=== PATIENT | female | born 1995 | race African-American/Black ===

== ENCOUNTER 2022-05-03 17:24 | Emergency (ER) | payer OTHER ==
--- OUTSIDE RECORDS SUMMARY | 2022-05-03 17:31 | XMS REPORT | Continuity of Care Document ---
:1995 Author Organization [facility] Address [address] [place] [address] [address]. [address] [place] [address] Care Team Providers Name Role Phone DIPESH SOTO Attending Clinician Unavailable ZAHIRA LYLE Attending Clinician Unavailable KARLA ROSALES Attending Clinician Unavailable JESSA VIEIRA Attending Clinician Unavailable Jessa Vieira MD Attending Clinician Herrera Boles MD Attending Clinician Alise Sloan MD Attending Clinician Connie WHCNPKarla Attending Clinician [phone] Ultrasound, Ang[facility] Attending Clinician Unavailable Ramonita Thomson MD Attending Clinician Brad Norton Attending Clinician BRAD MARADIAGA Attending Clinician Unavailable Lab, Ang-Rmchp Attending Clinician Unavailable Tico Thomson DO Attending Clinician 1, [facility] Us Room Attending Clinician Unavailable Larissa Garcia MD, Annetta Attending Clinician [phone] Lab, [facility] Attending Clinician Unavailable Tea KILLIAN, Tamiko Hyman Attending Clinician Doctor Unassigned, [place] Attending Clinician Unavailable Herrera Boles MD Admitting Clinician Payers Payer Name Policy Type Policy Number Effective Date Expiration Date [facility] [id number] 2019 MEDICAID 00:00:00 Problems Condition Condition Condition Status Onset Resolution Last Treating Co mments Source Name Details Category Date Date Treatment Clinician Date 33 weeks 33 weeks Disease Active Unive rs gestation gestation 7-30 ity of of of 00:00: [place] 00 [facility] Elevated Elevated Disease Active Unive rs blood blood 7-29 ity of pressure pressure 00:00: [place] reading reading 00 Medical without without Branch diagnosis diagnosis of of hypertensi hypertensi on on Severe Severe Disease Active Univers pre-eclamp pre-eclamp 7-29 it y of guido in guido in 00:00: [place] third third 00 Medical trimester trimester Bran ch Nausea and Nausea and Disease Active U nivers vomiting vomiting 2-02 ity of during during 00:00: [place] 00 [facility] Abnormal Abnormal Disease Active Overview: Un grace maternal maternal 106 Formattin ity of glucose glucose 00:00: g of this [place] tolerance, tolerance, 00 note Me dical antepartum antepartum might be Branch different from the original. Failed early 1 hrgtt, passed early 3 hr gtt Multiparit Multiparit Disease Active U nivers y y 1-05 ity of 00:00: [place] [facility] Supervisio Supervisio Disease Active U nivers n of n of 1-05 ity of high-risk high-risk 00:[place] [facility] History of History of Disease Active U nivers gestationa gestationa 1-05 it y of l diabetes l diabetes 00:00: [place] 00 [place] History of History of Disease Active U nivers asthma asthma 1-05 ity of 00:00: [place] 00 [facility] Branch Other Other Disease Active Univers general general 3-09 ity of counseling counseling 00:00[place] and advice and advice 00 Me dical for for Branch contracept contracept karla karla management management Obesity in Obesity in Disease Active U nivers 3-09 ity of 00:00: [place] 00 Medical Branch Nexplanon Nexplanon Disease Active Uni vers removal removal 3- ity of 00:00: [place] 00 Medical Branch Obesity Obesity Disease Active Univers (BMI (BMI 3- ity of 30-39.9) 30-39.9) 00:00: [place] 00 Medical Branch Gestationa Gestationa Disease Active 2017-0 U nivers l diabetes l diabetes 09-20 it y of mellitus, mellitus, 00:[place] antepartum antepartum 00 Me dical Branch Susceptibl Susceptibl Disease Active U nivers e to e to 09-20 ity of varicella varicella 00:00[place] (non-immun (non-immun 00 Me dical e), e), Branch currently currently No known No known Disease Unive rs active active ity of problems problems [facility] Allergies, Adverse Reactions, Alerts Allergy Allergy Status Severity Reaction(s) Onset Inactive Treating Comm ents Source Name Type Date Date Clinician Banana Propensi Active Itching Patients Unive rs ty to 09-18 states ity of adverse 00:00: gives her [place] reaction 00 an itchy Medica l s throat Branch Seafood/ Propensi Active Swelling Patient Uni vers Fish ty to 09-18 states ity of adverse 00:00: throat [place] reaction 00 swells Medical s and Branch excessive sweating. BANANA DRUG Active ITCHING Univers INGREDI 09-18 ity of 00:00: [place] 00 Medical Branch SEAFOOD/ Food Active Swelling Univer s FISH 09-18 ity of 00:00: [place] 00 Medical Branch Social History Social Habit Start Date Stop Date Quantity Comments Source ASSERTION 2020-09-08 University of 00:00:00 [facility] History of Cigarette Smoker Universi ty of tobacco use [facility] Exposure to Not sure [facility] SARS-CoV-2 [facility] (event) Branch Alcohol intake 2021-04-17 2021-04-17 Current University of 00:00:00 00:00:00 non-drinker of [facility] alcohol (finding) Branch Tobacco use and 2021-04-17 2021-04-17 Never used Universit y of exposure 00:00:00 00:00:00 [facility] Tobacco Comment 2016-11-22 2016-11-22 smokes 5 x per Unive rsity of 00:00:00 00:00:00 day [facility] Sex Ass[birth year] At [birth year] Universit y of 00:00:00 00:00:00 [facility] Smoking Status Start Date Stop Date Source Current some day smoker 2021-04-17 00:00:00 Univ ersity of [facility] Current every day smoker 2016-11-23 00:00:00 Uni versity [facility] Medications Ordered Filled Start Stop Current Ordering Indication Dosage Frequency Signature Comments Components Source Medication Medication Date Date Medication? Clinician (SIG) Name Name hydroCHLORO Yes [id number] 50mg Take 1 Univers thiazide 50 8-04 tablet by ity of mg tablet 00:00: mouth [place] 00 daily. Medical Branch hydroCHLORO Yes [id number] 50mg Take 1 Univers thiazide 50 8-04 tablet by ity of mg tablet 00:00: mouth [place] 00 daily. Medical Branch NIFEdipine 2020- No 30mg 30 mg, Univ ers ER tablet 04-19 Oral, ONCE ity of 30 mg 22:45: 22:01 NOW, 1 [place] 00 :00 dose, [facility] 04/19/21 at Branch 1745, Routine labetaloL 2020- No 20mg 20 mg, Unive rs (NORMODYNE) 04-19 Slow IV ity of injection 19:45: 18:46 Push, [place] 20 mg 00 :00 ONCE, 1 Medical dose, [facility] 04/19/21 at 1445, Routine Yes [id number] 1{tbl} Take 1 U nivers vitamin 8-03 tablet by ity of w/FA tablet 00:00: mouth [place] 00 daily. Medical Branch docusate Yes [id number] 240mg Take 1 Un grace calcium 240 8-03 capsule by it y of mg capsule 00:00: mouth [place] 00 daily as Medical needed for Branch Constipati on. ferrous Yes [id number] 325mg Take 1 Uni vers sulfate 325 8-03 tablet by ity of mg (65 mg 00:00: mouth 2 [place] iron) 00 (two) Medical tablet times Branch daily. ibuprofen Yes [id number] 600mg Take 1 U nivers 600 mg 8-03 tablet by ity of tablet 00:00: mouth [place] 00 every 6 Medical (six) Branch hours as needed (Pain). Take with food or milk. NIFEdipine Yes [id number] 60mg Take 1 U nivers ER 60 mg 8-03 tablet by ity of tablet 00:00: mouth 2 [place] 00 (two) Medical times Branch daily. Yes [id number] 1{tbl} Take 1 U nivers vitamin 8-03 tablet by ity of w/FA tablet 00:00: mouth [place] 00 daily. Medical Branch docusate Yes [id number] 240mg Take 1 Un grace calcium 240 8-03 capsule by it y of mg capsule 00:00: mouth once [place] 00 daily as Medical needed for Branch Constipati on. ferrous Yes [id number] 325mg Take 1 Uni vers sulfate 325 8-03 tablet by ity of mg (65 mg 00:00: mouth 2 [place] iron) 00 (two) Medical tablet times Branch daily. ibuprofen Yes [id number] 600mg Take 1 U nivers 600 mg 8-03 tablet by ity of tablet 00:00: mouth [place] 00 every 6 Medical (six) Branch hours as needed (Pain). Take with food or milk. NIFEdipine Yes [id number] 60mg Take 1 U nivers ER 60 mg 8-03 tablet by ity of tablet 00:00: mouth 2 [place] 00 (two) Medical times Branch daily. labetaloL 2020- No 40mg 40 mg, Unive rs (NORMODYNE) 04-18 Slow IV ity of injection 23:30: 22:49 Push, [place] 40 mg 00 :00 ONCE, 1 Medical dose, [facility] 04/18/21 at 1830, Routine labetaloL 2020- No 20mg 20 mg, Unive rs (NORMODYNE) 04-18 Slow IV ity of injection 23:15: 22:11 Push, [place] 20 mg 00 :00 ONCE, 1 Medical dose, [facility] 04/18/21 at 1815, Routine labetaloL 2020- No 80mg 80 mg, Unive rs (NORMODYNE) 04-18 Slow IV ity of injection 23:09: 23:11 Push, [place] 80 mg 00 :00 ONCE, 1 Medical dose, [facility] 04/18/21 at 1815, Routine hydroCHLORO Yes 50mg 50 mg, Univ ers thiazide 04-18 Oral, ity of (ESIDRIX) 23:00: DAILY, [place] tablet 50 00 First dose Medi melly mg on [facility] 04/18/21 at 1800, Until Discontinu ed, Routine NIFEdipine Yes 30mg 30 mg, Unive rs (ADALAT) 04-18 Oral, BID, ity o f capsule 30 01:00: First dose [place] mg 00 on [facility] 04/17/21 at Branch 2000, Until Discontinu ed, Routine labetaloL 202- No 40mg 40 mg, Unive rs (NORMODYNE) 04-18 Slow IV ity of injection 00:45: 23:42 Push, [place] 40 mg 00 :00 ONCE, 1 Medical dose, [facility] 04/17/21 at 1945, Routine labetaloL 2020- No 20mg 20 mg, Unive rs (NORMODYNE) 04-17 Slow IV ity of injection 23:45: 22:35 Push, [place] 20 mg 00 :00 ONCE, 1 Medical dose, [facility] 04/17/21 at 1845, Routine magnesium 2020- No 2g/h 2 g/hr (50 U nivers sulfate in 04-17 mL/hr), at it y of 0.9 %NaCl 20:30: 06:35 50 mL/hr, [place] 10 gram/250 00 :53 IV Medical mL (40 Infusion, Branch mg/mL) IV CONTINUOUS SOLUTION , Starting [place] 04/17/21 at 1530, Until [facility] 04/18/21 at 0135, ROYCE labetaloL 202- No 20mg 20 mg, Unive rs (NORMODYNE) 04-17 Slow IV ity of injection 14:02: 14:07 Push, [place] 20 mg 00 :00 ONCE, 1 Medical dose, [facility] 04/17/21 at 0915, Routine NIFEdipine 2020- No 30mg 30 mg, Univ ers ER tablet 04-17 Oral, ity of 30 mg 14:00: 22:39 DAILY, [place] 00 :15 First dose Medical on [facility] 04/17/21 at 0900, Until Discontinu ed, Routine labetaloL 202- No 20mg 20 mg, Unive rs (NORMODYNE) 04-17 Slow IV ity of injection 13:45: 12:43 Push, [place] 20 mg 00 :00 ONCE, 1 Medical dose, [place] [facility] 04/17/21 at 0845, ROYCE rho(D) Yes 300ug 300 mcg, Univer s immune 04-17 Intramuscu ity of globulin 12:50: lar, ONCE, [place] (RHOGAM) 04 For 1 Medical syringe 300 dose, Branch mcg Conditiona l, Routine ondansetron Yes 4mg 4 mg, Slow Univers (ZOFRAN 04-17 IV Push, ity of (PF)) 12:50: Q8HPRN, [place] injection 4 00 Starting Medi melly mg [place] 04/17/21 Branch at 0750, Until Discontinu ed, Routine, Nausea and Vomiting (N/V) simethicone Yes 160mg 160 mg, Un grace (GAS RELIEF 04-17 Oral, ity of (SIMETHICON 12:50: PC+HSPRN, [place] E)) 00 Starting Medical chewable 04/17/21 Branc h tablet 160 at 0750, mg Until Discontinu ed, Routine, Gas magnesium Yes 30mL 30 mL, [place] [facility] s hydroxide 04-17 Oral, ity of (MILK OF 12:50: QDAILYPRN, [place] MAGNESIA) 00 Starting Medica l 400 mg/5 mL [place] 04/17/21 Br anch suspension at 0750, 30 mL Until Discontinu ed, Routine, Constipati on ibuprofen Yes 600mg 600 mg, Univ ers (IBU) 04-17 Oral, ity of tablet 600 12:49: Q6HPRN, [place] mg 59 Starting Medical 04/17/21 Branch at 0749, Until Discontinu ed, Routine, Pain (scale 4-6) acetaminoph Yes 650mg 650 mg, Un grace en 04-17 Oral, ity of (TYLENOL) 12:49: Q6HPRN, [place] tablet 650 59 Starting Medic al mg [place] 04/17/21 Branch at 0749, Until Discontinu ed, Routine, Pain (scale 1-3) diphenhydrA Yes 25mg 25 mg, Univ ers MINE 04-17 Oral, ity of (BENADRYL) 12:49: Q6HPRN, [place] tablet 25 59 Starting Medica l mg 04/17/21 Branch at 0749, Until Discontinu ed, Routine, Sleep, Itching diphenhydrA Yes 25mg 25 mg, IV U nivers MINE-0.9 % 04-17 Piggyback, ity of sod.chlr 12:49: Administer [place] (BENADRYL) 59 over 30 Medica l 25 mg/50 mL Minutes, Bran ch piggyback Q6HPRN, 25 mg Starting 04/17/21 at 0749, Until Discontinu ed, Routine, Itching docusate Yes 240mg 240 mg, Unive rs calcium 04-17 Oral, ity of (SURFAK) 12:49: QDAILYPRN, [place] capsule 240 59 Starting Medi melly mg 04/17/21 Branch at 0749, Until Discontinu ed, Routine, Constipati on benzocaine- Yes Topical, Un grace menthol 04-17 PRN, ity of (DERMOPLAST 12:49: Starting [place] ) 20-0.5 % 59 04/17/21 Med ical topical at 0749, Branch spray Until Discontinu ed, Routine, Perineum discomfort LR 1000 mL 2020- No 999mL/h 999 mL/hr, Univers + oxytocin 04-17 IV ity of 20 units IV 07:00: 07:31 Infusion, [place] Solution 00 :00 ONCE, [place] Medica l 04/17/21 at Branch 0200, For 1 dose
In fuse 999 mL /hr & amp;nbsp;o evy 30 minutes and then decrease rate to 125 mL/hr for the remainder.
hydralAZINE 2020- No 10mg 10 mg, Uni vers (APRESOLINE 04-17 Slow IV ity of ) injection 04:00: 03:22 [place], [place] 10 mg 00 :00 ONCE, 1 Medical dose, Sat Branch 04/16/21 at 2300, STAT
In dication: Hypertensi ve Emergency in niCARdipine 2020- No 2.5mg/h 2.5-15 Univers (CARDENE 04-17 08-02 mg/hr ity of I.V.) 40 mg 03:29: 07:23 (12.5-75 [place] in NaCL 200 18 :50 mL/hr), IV Me dical mL (RTU) Infusion, Branch infusion TITRATE, SBP Goal < 180 mmHg, DBP Goal < 110 mmHg, Titrate to <160/110, Starting 04/16/21 at 2229
In itiate infusion at 2.5 mg/hr.&nbs p; Ti trate by 2.5 mg/hr every 5 minutes to 15 minutes as needed to achieve and maintain goal blood pressure. Maximum dose = 15 mg/hr. If goal not maintained at maximum allowed dose, contact prescriber .
niCARdipine 2020- No 2.5mg/h 2.5-15 Univers (CARDENE 04-17 mg/hr ity of I.V.) 40 mg 03:29: 03:18 (12.5-75 [place] in NaCL 200 18 :17 mL/hr), IV Me dical mL (RTU) Infusion, Branch infusion TITRATE, SBP Goal < 180 mmHg, Starting 04/16/21 at 2229
In itiate infusion at 2.5 mg/hr.&nbs p; Ti trate by 2.5 mg/hr every 5 minutes to 15 minutes as needed to achieve and maintain goal blood pressure. Maximum dose = 15 mg/hr. If goal not maintained at maximum allowed dose, contact prescriber .
magnesium No 2g/h 2 g/hr (50 U nivers sulfate in 04-17 mL/hr), at it y of 0.9 %NaCl 00:00: 11:59 50 mL/hr, [place] 10 gram/250 00 :00 IV Medical mL (40 Infusion, Branch mg/mL) IV CONTINUOUS SOLUTION , Starting 04/16/21 at 1900, Until 04/17/21 at 0659, ROYCE labetaloL 2020- No 80mg 80 mg, Unive rs (NORMODYNE) 04-16 Slow IV ity of injection 23:15: 22:14 Push, [place] 80 mg 00 :00 ONCE, 1 Medical dose, Sat Branch 04/16/21 at 1815, Routine labetaloL 2020- No 40mg 40 mg, Unive rs (NORMODYNE) 04-16 Slow IV ity of injection 23:00: 21:55 Push, [place] 40 mg 00 :00 ONCE, 1 Medical dose, Sat Branch 04/16/21 at 1800, Routine diphenhydrA 2020- No 25mg 25 mg, Uni vers MINE 04-16 Slow IV ity of (BENADRYL) 22:58: 23:06 Push, [place] injection 00 :00 ONCE, 1 Medical 25 mg dose, Sat Branch 04/16/21 at 1800, Routine labetaloL 2020- No 20mg 20 mg, Unive rs (NORMODYNE) 04-16 Slow IV ity of injection 22:30: 21:18 Push, [place] 20 mg 00 :00 ONCE, 1 Medical dose, Sat Branch 04/16/21 at 1730, ROYCE LR 1000 mL 2020- No 2mU/min at 6-120 Univers + oxytocin 04-16 08-01 mL/hr, IV ity of 20 units IV 21:45: 07:27 Infusion, [place] Solution 33 :46 TITRATE, Medical Starting Branch 04/16/21 at 1645, Until 04/17/21 at 0227, ROYCE lactated 2020- No 500mL at 999 Unive rs ringers IV 04-16 mL/hr, 500 it y of infusion 19:45: 19:53 mL, IV [place] 500 mL 00 :00 Infusion, Medical ONCE, 1 Branch dose, 04/16/21 at 1445, Routine sodium 2020- No 30mL 30 mL, Univers citrate-cit 04-16 Oral, ity of jesus acid 18:34: 19:52 PRE-PROCED [place] (BICITRA) 18 :00 URE ONCE, Medic al 500-334 1 dose, Branch mg/5 mL Starting solution 30 Sat mL 04/16/21 at 1334, Until Discontinu ed, Routine, Surgery/Pr ocedure hydralAZINE 2020- No 10mg 10 mg, Uni vers (APRESOLINE 04-16 Slow IV ity of ) injection 18:00: 17:01 [place], [place] 10 mg 00 :00 ONCE, 1 Medical dose, Sat [place] 04/16/21 at 1300, STAT
In dication: Hypertensi ve Emergency in labetaloL 2020- No 20mg 20 mg, Unive rs (NORMODYNE) 04-16 Slow IV ity of injection 13:53: 13:55 Push, [place] 20 mg 00 :00 ONCE, 1 Medical dose, Sat [place] 04/16/21 at 0900, Routine labetaloL 2020- No 20mg 20 mg, Unive rs (NORMODYNE) 04-16 Slow IV ity of injection 04:34: 04:37 Push, [place] 20 mg 00 :00 ONCE, 1 Medical dose, Fri [place] 04/15/21 at 2345, ROYCE NIFEdipine 2020- No 30mg 30 mg, Univ ers ER tablet 04-16 Oral, ity of 30 mg 04:34: 04:52 ONCE, 1 [place] 00 :00 dose, Fri Medical 04/15/21 at Branch 2345, ROYCE magnesium 2020- No 2g/h 2 g/hr (50 U nivers sulfate in 04-15 mL/hr), at it y of 0.9 %NaCl 19:45: 07:44 50 mL/hr, [place] 10 gram/250 00 :00 IV Medical mL (40 Infusion, Branch mg/mL) IV CONTINUOUS SOLUTION , Starting 04/15/21 at 1445, Until 04/16/21 at 0244, ROYCE butalbital- 2020- No 2{tbl} 2 tablet, Univers acetaminoph 04-15 Oral, ity of en-caff 05:20: 06:09 ONCE, 1 [place] (ESGIC) 00 :00 dose, Fri Medical 50-325-40 04/15/21 at Bran ch mg tablet 2 0030, tablet Routine D5W 0.45% 2020- No 1000mL at 75 Univ ers NaCl 04-15 08-01 mL/hr, ity of (1/2NS) IV 04:00: 12:50 1,000 mL, [place] infusion 00 :04 IV Medical 1,000 mL Infusion, Branch CONTINUOUS , Starting [place] 04/14/21 at 2300, Until 04/17/21 at 0750, ROYCE magnesium 2020- No 2g/h 2 g/hr (50 U nivers sulfate in 04-15-30 mL/hr), at it y of 0.9 %NaCl 04:00: 15:59 50 mL/hr, [place] 10 gram/250 00 :00 IV Medical mL (40 Infusion, Branch mg/mL) IV CONTINUOUS SOLUTION , Starting [place] 04/14/21 at 2300, Until Sun04/15/21 at 1059, ROYCE labetaloL 2020- No 40mg 40 mg, Unive rs (NORMODYNE) 04-14 Slow IV ity of injection 23:35: 23:40 Push, [place] 40 mg 00 :00 ONCE, 1 Medical dose, [facility] [place] 04/14/21 at 1845, ROYCE NIFEdipine 2020- No 30mg 30 mg, Univ ers ER tablet 04-14 Oral, ity of 30 mg 23:30: 23:11 ONCE, 1 [place] 00 :00 dose, [facility] Medical 04/14/21 at Branch 1830, Routine betamethaso 2020- No 12mg 12 mg, Uni vers ne acet,sod 04-14 Intramuscu i ty of phos 22:45: 23:00 lar, Q24H, [place] (CELESTONE 00 :00 2 doses, Medic al SOLUSPAN) 6 First dose Br anch mg/mL on [place] injection 04/14/21 at 12 mg 1745, Last dose on Sun04/15/21 at 1745, Routine D5W 0.45% 2020- No 1000mL at 75 Univ ers NaCl 04-14 08-02 mL/hr, ity of (1/2NS) IV 21:45: 07:23 1,000 mL, [place] infusion 00 :50 IV Medical 1,000 mL Infusion, Branch CONTINUOUS , Starting [facility] 04/14/21 at 1645, Until 04/18/21 at 0223, ROYCE magnesium 2020- No 2g/h 2 g/hr (50 U nivers sulfate in 04-1430 mL/hr), at it y of 0.9 %NaCl 21:45: 03:51 50 mL/hr, [place] 10 gram/250 00 :54 IV Medical mL (40 Infusion, Branch mg/mL) IV CONTINUOUS SOLUTION , Starting [place] 04/14/21 at 1645, Until [place] 04/14/21 at 2251, ROYCE LORazepam Yes 2mg 2 mg, Univers (ATIVAN) 04-14 Intravenou ity o f injection 2 21:34: s, PRN - [place] mg 27 SEE Medical INSTRUCTIO Branch NS, 2 doses, Starting [place] 04/14/21 at 1634, Until Discontinu ed, Routine, Seizures Yes [id number] 1{tbl} Take 1 U nivers multivitami 3-02 tablet by ity of n ( 00:00: mouth [place] VITAMIN) 00 daily. Medical tablet Branch Yes [id number] 1{tbl} Take 1 U nivers multivitami 3-02 tablet by ity of n ( 00:00: mouth [place] VITAMIN) 00 daily. Medical tablet Branch Yes [id number] 1{tbl} Take 1 U nivers multivitami 3-02 tablet by ity of n ( 00:00: mouth [place] VITAMIN) 00 daily. Medical tablet Branch Yes [id number] 1{tbl} Take 1 U nivers multivitami 3-02 tablet by ity of n ( 00:00: mouth [place] VITAMIN) 00 daily. Medical tablet Branch Yes [id number] 1{tbl} Take 1 U nivers multivitami 3-02 tablet by ity of n ( 00:00: mouth [place] VITAMIN) 00 daily. Medical tablet Branch Yes [id number] 1{tbl} Take 1 U nivers multivitami 3-02 tablet by ity of n ( 00:00: mouth [place] VITAMIN) 00 daily. Medical tablet Branch Yes [id number] 1{tbl} Take 1 U nivers multivitami 3-02 tablet by ity of n ( 00:00: mouth [place] VITAMIN) 00 daily. Medical tablet Branch Yes [id number] 1{tbl} Take 1 U nivers multivitami 3-02 tablet by ity of n ( 00:00: mouth [place] VITAMIN) 00 daily. Medical tablet Branch Yes [id number] 1{tbl} Take 1 U nivers multivitami 3-02 tablet by ity of n ( 00:00: mouth [place] VITAMIN) 00 daily. Medical tablet Branch Yes [id number] 1{tbl} Take 1 U nivers multivitami 3-02 tablet by ity of n ( 00:00: mouth [place] VITAMIN) 00 daily. Medical tablet Branch Yes [id number] 1{tbl} Take 1 U nivers multivitami 3-02 tablet by ity of n ( 00:00: mouth [place] VITAMIN) 00 daily. Medical tablet Branch Yes [id number] 1{tbl} Take 1 U nivers multivitami 3-02 tablet by ity of n ( 00:00: mouth [place] VITAMIN) 00 daily. Medical tablet Branch Yes [id number] 1{tbl} Take 1 U nivers multivitami 3-02 tablet by ity of n ( 00:00: mouth [place] VITAMIN) 00 daily. Medical tablet Branch Yes [id number] 1{tbl} Take 1 U nivers multivitami 3-02 tablet by ity of n ( 00:00: mouth [place] VITAMIN) 00 daily. Medical tablet Branch Yes [id number] 1{tbl} Take 1 U nivers multivitami 3-02 tablet by ity of n ( 00:00: mouth [place] VITAMIN) 00 daily. Medical tablet Branch Yes [id number] 1{tbl} Take 1 U nivers multivitami 3-02 tablet by ity of n ( 00:00: mouth [place] VITAMIN) 00 daily. Medical tablet Branch Yes [id number] 1{tbl} Take 1 U nivers multivitami 3-02 tablet by ity of n ( 00:00: mouth [place] VITAMIN) 00 daily. Medical tablet Branch Yes [id number] 1{tbl} Take 1 U nivers multivitami 3-02 tablet by ity of n ( 00:00: mouth [place] VITAMIN) 00 daily. Medical tablet Branch Yes [id number] 1{tbl} Take 1 U nivers multivitami 3-02 tablet by ity of n ( 00:00: mouth [place] VITAMIN) 00 daily. Medical tablet Branch Yes [id number] 1{tbl} Take 1 U nivers multivitami 3-02 tablet by ity of n ( 00:00: mouth [place] VITAMIN) 00 daily. Medical tablet Branch Yes [id number] 1{tbl} Take 1 U nivers multivitami 3-02 tablet by ity of n ( 00:00: mouth [place] VITAMIN) 00 daily. Medical tablet Branch Yes [id number] 1{tbl} Take 1 U nivers multivitami 3-02 tablet by ity of n ( 00:00: mouth [place] VITAMIN) 00 daily. Medical tablet Branch 2020- No [id number] 1{tbl} Take 1 Univers multivitami 3-02 08-03 tablet by it y of n ( 00:00: 00:00 [place] VITAMIN) 00 :00 daily. Medical tablet Branch proMETHazin Yes [id number] 25mg Take 1 Univers e 25 mg 2-02 tablet by ity of tablet 00:00: mouth [place] 00 every 6 Medical (six) Branch hours as needed for Nausea and Vomiting (N/V). proMETHazin Yes [id number] 25mg Take 1 Univers e 25 mg 2-02 tablet by ity of tablet 00:00: mouth [place] 00 every 6 Medical (six) Branch hours as needed for Nausea and Vomiting (N/V). proMETHazin Yes [id number] 25mg Take 1 Univers e 25 mg 2-02 tablet by ity of tablet 00:00: mouth [place] 00 every 6 Medical (six) Branch hours as needed for Nausea and Vomiting (N/V). proMETHazin Yes [id number] 25mg Take 1 Univers e 25 mg 2-02 tablet by ity of tablet 00:00: mouth [place] 00 every 6 Medical (six) Branch hours as needed for Nausea and Vomiting (N/V). proMETHazin Yes [id number] 25mg Take 1 Univers e 25 mg 2-02 tablet by ity of tablet 00:00: mouth [place] 00 every 6 Medical (six) Branch hours as needed for Nausea and Vomiting (N/V). proMETHazin 2020-0 Yes [id number] 25mg Take 1 Univers e 25 mg 2-02 tablet by ity of tablet 00:00: mouth [place] 00 every 6 Medical (six) Branch hours as needed for Nausea and Vomiting (N/V). proMETHazin 2020-0 Yes [id number] 25mg Take 1 Univers e 25 mg 2-02 tablet by ity of tablet 00:00: mouth [place] 00 every 6 Medical (six) Branch hours as needed for Nausea and Vomiting (N/V). proMETHazin 2020-0 Yes [id number] 25mg Take 1 Univers e 25 mg 2-02 tablet by ity of tablet 00:00: mouth [place] 00 every 6 Medical (six) Branch hours as needed for Nausea and Vomiting (N/V). proMETHazin 2020-0 Yes [id number] 25mg Take 1 Univers e 25 mg 2-02 tablet by ity of tablet 00:00: mouth [place] 00 every 6 Medical (six) Branch hours as needed for Nausea and Vomiting (N/V). proMETHazin 2020-0 Yes [id number] 25mg Take 1 Univers e 25 mg 2-02 tablet by ity of tablet 00:00: mouth [place] 00 every 6 Medical (six) Branch hours as needed for Nausea and Vomiting (N/V). proMETHazin 2020-0 Yes [id number] 25mg Take 1 Univers e 25 mg 2-02 tablet by ity of tablet 00:00: mouth [place] 00 every 6 Medical (six) Branch hours as needed for Nausea and Vomiting (N/V). proMETHazin 2020-0 Yes [id number] 25mg Take 1 Univers e 25 mg 2-02 tablet by ity of tablet 00:00: mouth [place] 00 every 6 Medical (six) Branch hours as needed for Nausea and Vomiting (N/V). proMETHazin 2020-0 Yes [id number] 25mg Take 1 Univers e 25 mg 2-02 tablet by ity of tablet 00:00: mouth [place] 00 every 6 Medical (six) Branch hours as needed for Nausea and Vomiting (N/V). proMETHazin 2020-0 Yes [id number] 25mg Take 1 Univers e 25 mg 2-02 tablet by ity of tablet 00:00: mouth [place] 00 every 6 Medical (six) Branch hours as needed for Nausea and Vomiting (N/V). proMETHazin 2020-0 Yes [id number] 25mg Take 1 Univers e 25 mg 2-02 tablet by ity of tablet 00:00: mouth [place] 00 every 6 Medical (six) Branch hours as needed for Nausea and Vomiting (N/V). proMETHazin 2020-0 Yes [id number] 25mg Take 1 [facility] e 25 mg 2-02 tablet by ity of tablet 00:00: mouth [place] 00 every 6 Medical (six) Branch hours as needed for Nausea and Vomiting (N/V). proMETHazin 0 Yes [id number] 25mg Take 1 Univers e 25 mg 2-02 tablet by ity of tablet 00:00: mouth [place] 00 every 6 Medical (six) Branch hours as needed for Nausea and Vomiting (N/V). proMETHazin 0 Yes [id number] 25mg Take 1 Univers e 25 mg 2-02 tablet by ity of tablet 00:00: mouth [place] 00 every 6 Medical (six) Branch hours as needed for Nausea and Vomiting (N/V). proMETHazin 0 Yes [id number] 25mg Take 1 Univers e 25 mg 2-02 tablet by ity of tablet 00:00: mouth [place] 00 every 6 Medical (six) Branch hours as needed for Nausea and Vomiting (N/V). proMETHazin 0 Yes [id number] 25mg Take 1 Univers e 25 mg 2-02 tablet by ity of tablet 00:00: mouth [place] 00 every 6 Medical (six) Branch hours as needed for Nausea and Vomiting (N/V). proMETHazin 0 Yes [id number] 25mg Take 1 Univers e 25 mg 2-02 tablet by ity of tablet 00:00: mouth [place] 00 every 6 Medical (six) Branch hours as needed for Nausea and Vomiting (N/V). proMETHazin 2020-0 Yes [id number] 25mg Take 1 Univers e 25 mg 2-02 tablet by ity of tablet 00:00: mouth [place] 00 every 6 Medical (six) Branch hours as needed for Nausea and Vomiting (N/V). proMETHazin 2020-0 Yes [id number] 25mg Take 1 Univers e 25 mg 2-02 tablet by ity of tablet 00:00: mouth [place] 00 every 6 Medical (six) Branch hours as needed for Nausea and Vomiting (N/V). proMETHazin 2020- No [id number] 25mg Take 1 Univers e 25 mg 10-19- tablet by ity of tablet 00:00: 00:00 mouth [place] 00 :00 every 6 Medical (six) Branch hours as needed for Nausea and Vomiting (N/V). Yes [id number] 1{tbl} Take 1 U nivers multivitami 1-05 tablet by ity of n ( 00:00: mouth [place] VITAMIN) 00 daily. Medical tablet Branch Yes [id number] 1{tbl} Take 1 U nivers multivitami 1-05 tablet by ity of n ( 00:00: mouth [place] VITAMIN) 00 daily. Medical tablet Branch Yes [id number] 1{tbl} Take 1 U nivers multivitami 1-05 tablet by ity of n ( 00:00: mouth [place] VITAMIN) 00 daily. Medical tablet Branch Yes [id number] 1{tbl} Take 1 U nivers multivitami 1-05 tablet by ity of n ( 00:00: mouth [place] VITAMIN) 00 daily. Medical tablet Branch Yes [id number] 1{tbl} Take 1 U nivers multivitami 1-05 tablet by ity of n ( 00:00: mouth [place] VITAMIN) 00 daily. Medical tablet Branch Yes [id number] 1{tbl} Take 1 U nivers multivitami 1-05 tablet by ity of n ( 00:00: mouth [place] VITAMIN) 00 daily. Medical tablet Branch Yes [id number] 1{tbl} Take 1 U nivers multivitami 1-05 tablet by ity of n ( 00:00: mouth [place] VITAMIN) 00 daily. Medical tablet Branch Yes [id number] 1{tbl} Take 1 U nivers multivitami 1-05 tablet by ity of n ( 00:00: mouth [place] VITAMIN) 00 daily. Medical tablet Branch Yes [id number] 1{tbl} Take 1 U nivers multivitami 1-05 tablet by ity of n ( 00:00: mouth [place] VITAMIN) 00 daily. Medical tablet Branch Yes [id number] 1{tbl} Take 1 U nivers multivitami 1-05 tablet by ity of n ( 00:00: mouth [place] VITAMIN) 00 daily. Medical tablet Branch Yes [id number] 1{tbl} Take 1 U nivers multivitami 1-05 tablet by ity of n ( 00:00: mouth [place] VITAMIN) 00 daily. Medical tablet Branch Yes [id number] 1{tbl} Take 1 U nivers multivitami 1-05 tablet by ity of n ( 00:00: mouth [place] VITAMIN) 00 daily. Medical tablet Branch Yes [id number] 1{tbl} Take 1 U nivers multivitami 1-05 tablet by ity of n ( 00:00: mouth [place] VITAMIN) 00 daily. Medical tablet Branch Yes [id number] 1{tbl} Take 1 U nivers multivitami 1-05 tablet by ity of n ( 00:00: mouth [place] VITAMIN) 00 daily. Medical tablet Branch Yes [id number] 1{tbl} Take 1 U nivers multivitami 1-05 tablet by ity of n ( 00:00: mouth [place] VITAMIN) 00 daily. Medical tablet Branch Yes [id number] 1{tbl} Take 1 U nivers multivitami 1-05 tablet by ity of n ( 00:00: mouth [place] VITAMIN) 00 daily. Medical tablet Branch Yes [id number] 1{tbl} Take 1 U nivers multivitami 1-05 tablet by ity of n ( 00:00: mouth [place] VITAMIN) 00 daily. Medical tablet Branch Yes [id number] 1{tbl} Take 1 U nivers multivitami 1-05 tablet by ity of n ( 00:00: mouth [place] VITAMIN) 00 daily. Medical tablet Branch Yes [id number] 1{tbl} Take 1 U nivers multivitami 1-05 tablet by ity of n ( 00:00: mouth [place] VITAMIN) 00 daily. Medical tablet Branch Yes [id number] 1{tbl} Take 1 U nivers multivitami 1-05 tablet by ity of n ( 00:00: mouth [place] VITAMIN) 00 daily. Medical tablet Branch Yes [id number] 1{tbl} Take 1 U nivers multivitami 1-05 tablet by ity of n ( 00:00: mouth [place] VITAMIN) 00 daily. Medical tablet Branch Yes [id number] 1{tbl} Take 1 U nivers multivitami 1-05 tablet by ity of n ( 00:00: mouth [place] VITAMIN) 00 daily. Medical tablet Branch Yes [id number] 1{tbl} Take 1 U nivers multivitami 1-05 tablet by ity of n ( 00:00: mouth [place] VITAMIN) 00 daily. Medical tablet Branch Yes [id number] 1{tbl} Take 1 U nivers multivitami 1-05 tablet by ity of n ( 00:00: mouth [place] VITAMIN) 00 daily. Medical tablet Branch Yes [id number] 1{tbl} Take 1 U nivers multivitami 1-05 tablet by ity of n ( 00:00: mouth [place] VITAMIN) 00 daily. Medical tablet Branch Yes [id number] 1{tbl} Take 1 U nivers multivitami 1-05 tablet by ity of n ( 00:00: mouth [place] VITAMIN) 00 daily. Medical tablet Branch Yes [id number] 1{tbl} Take 1 U nivers multivitami 1-05 tablet by ity of n ( 00:00: mouth [place] VITAMIN) 00 daily. Medical tablet Branch Yes [id number] 1{tbl} Take 1 U nivers multivitami 1-05 tablet by ity of n ( 00:00: mouth [place] VITAMIN) 00 daily. Medical tablet Branch 2020- No [id number] 1{tbl} Take 1 [facility] multivitami 1-05 08-03 tablet by it y of n ( 00:00: [place] 00 :00 daily. Medical tablet Branch norgestimat Yes [id number] 1{tbl} Take 1 Univers e-ethinyl 3-19 tablet by ity o f estradiol 00:00: mouth [place] (ORTHO 00 daily. Medical TRI-CYCLEN, Branch 28,) 0.18/0.215/ 0.25 mg-35 mcg (28) tablet norgestimat 2020-0 Yes [id number] 1{tbl} Take 1 Univers e-ethinyl 3-19 tablet by ity o f estradiol 00:00: mouth [place] (ORTHO 00 daily. [place] [address],) 0.18/0.215/ 0.25 mg-35 mcg (28) tablet norgestimat 2020-0 Yes [id number] 1{tbl} Take 1 Univers e-ethinyl 3-19 tablet by ity o f estradiol 00:00: mouth [place] (ORTHO 00 daily. [place] [address],) 0.18/0.215/ 0.25 mg-35 mcg (28) tablet norgestimat 2020-0 Yes [id number] 1{tbl} Take 1 Univers e-ethinyl 3-19 tablet by ity o f estradiol 00:00: mouth [place] (ORTHO 00 daily. [place] [address],) 0.18/0.215/ 0.25 mg-35 mcg (28) tablet norgestimat 2020-0 Yes [id number] 1{tbl} Take 1 Univers e-ethinyl 3-19 tablet by ity o f estradiol 00:00: mouth [place] (ORTHO 00 daily. [place] [address],) 0.18/0.215/ 0.25 mg-35 mcg (28) tablet norgestimat 2020-0 Yes [id number] 1{tbl} Take 1 Univers e-ethinyl 3-19 tablet by ity o f estradiol 00:00: mouth [place] (ORTHO 00 daily. [place] [address],) 0.18/0.215/ 0.25 mg-35 mcg (28) tablet norgestimat 2020-0 Yes [id number] 1{tbl} Take 1 Univers e-ethinyl 3-19 tablet by ity o f estradiol 00:00: mouth [place] (ORTHO 00 daily. [place] [address],) 0.18/0.215/ 0.25 mg-35 mcg (28) tablet norgestimat 2020-0 Yes [id number] 1{tbl} Take 1 Univers e-ethinyl 3-19 tablet by ity o f estradiol 00:00: mouth [place] (ORTHO 00 daily. [place] [address],) 0.18/0.215/ 0.25 mg-35 mcg (28) tablet norgestimat 2020-0 Yes [id number] 1{tbl} Take 1 Univers e-ethinyl 3-19 tablet by ity o f estradiol 00:00: mouth [place] (ORTHO 00 daily. [place] [address],) 0.18/0.215/ 0.25 mg-35 mcg (28) tablet norgestimat 2020-0 Yes [id number] 1{tbl} Take 1 Univers e-ethinyl 3-19 tablet by ity o f estradiol 00:00: mouth [place] (ORTHO 00 daily. [place] [address],) 0.18/0.215/ 0.25 mg-35 mcg (28) tablet norgestimat 2020-0 Yes [id number] 1{tbl} Take 1 Univers e-ethinyl 3-19 tablet by ity o f estradiol 00:00: mouth [place] (ORTHO 00 daily. [place] [address],) 0.18/0.215/ 0.25 mg-35 mcg (28) tablet norgestimat 2020-0 Yes [id number] 1{tbl} Take 1 Univers e-ethinyl 3-19 tablet by ity o f estradiol 00:00: mouth [place] (ORTHO 00 daily. [place] [address],) 0.18/0.215/ 0.25 mg-35 mcg (28) tablet norgestimat 2020-0 Yes [id number] 1{tbl} Take 1 Univers e-ethinyl 3-19 tablet by ity o f estradiol 00:00: mouth [place] (ORTHO 00 daily. [place] [address],) 0.18/0.215/ 0.25 mg-35 mcg (28) tablet norgestimat 2020-0 Yes [id number] 1{tbl} Take 1 Univers e-ethinyl 3-19 tablet by ity o f estradiol 00:00: mouth [place] (ORTHO 00 daily. [place] [address],) 0.18/0.215/ 0.25 mg-35 mcg (28) tablet norgestimat 2020-0 Yes [id number] 1{tbl} Take 1 Univers e-ethinyl 3-19 tablet by ity o f estradiol 00:00: mouth [place] (ORTHO 00 daily. [place] [address],) 0.18/0.215/ 0.25 mg-35 mcg (28) tablet norgestimat 2020-0 Yes [id number] 1{tbl} Take 1 Univers e-ethinyl 3-19 tablet by ity o f estradiol 00:00: mouth [place] (ORTHO 00 daily. [place] [address],) 0.18/0.215/ 0.25 mg-35 mcg (28) tablet norgestimat 2020-0 Yes [id number] 1{tbl} Take 1 Univers e-ethinyl 3-19 tablet by ity o f estradiol 00:00: mouth [place] (ORTHO 00 daily. [place] [address],) 0.18/0.215/ 0.25 mg-35 mcg (28) tablet norgestimat 2020-0 Yes [id number] 1{tbl} Take 1 Univers e-ethinyl 3-19 tablet by ity o f estradiol 00:00: mouth [place] (ORTHO 00 daily. [place] [address],) 0.18/0.215/ 0.25 mg-35 mcg (28) tablet norgestimat 2020-0 Yes [id number] 1{tbl} Take 1 Univers e-ethinyl 3-19 tablet by ity o f estradiol 00:00: mouth [place] (ORTHO 00 daily. [place] [address],) 0.18/0.215/ 0.25 mg-35 mcg (28) tablet norgestimat 2020-0 Yes [id number] 1{tbl} Take 1 Univers e-ethinyl 3-19 tablet by ity o f estradiol 00:00: mouth [place] (ORTHO 00 daily. [place] [address],) 0.18/0.215/ 0.25 mg-35 mcg (28) tablet norgestimat 2020-0 Yes [id number] 1{tbl} Take 1 Univers e-ethinyl 3-19 tablet by ity o f estradiol 00:00: mouth [place] (ORTHO 00 daily. [place] [address],) 0.18/0.215/ 0.25 mg-35 mcg (28) tablet norgestimat 2020-0 Yes [id number] 1{tbl} Take 1 Univers e-ethinyl 3-19 tablet by ity o f estradiol 00:00: mouth [place] (ORTHO 00 daily. [place] [address],) 0.18/0.215/ 0.25 mg-35 mcg (28) tablet norgestimat 2020-0 Yes [id number] 1{tbl} Take 1 Univers e-ethinyl 3-19 tablet by ity o f estradiol 00:00: mouth [place] (ORTHO 00 daily. [place] [address],) 0.18/0.215/ 0.25 mg-35 mcg (28) tablet norgestimat 2020-0 Yes [id number] 1{tbl} Take 1 Univers e-ethinyl 3-19 tablet by ity o f estradiol 00:00: mouth [place] (ORTHO 00 daily. [place] [address],) 0.18/0.215/ 0.25 mg-35 mcg (28) tablet norgestimat 2020-0 Yes [id number] 1{tbl} Take 1 Univers e-ethinyl 3-19 tablet by ity o f estradiol 00:00: mouth [place] (ORTHO 00 daily. [place] [address],) 0.18/0.215/ 0.25 mg-35 mcg (28) tablet norgestimat 2020-0 Yes [id number] 1{tbl} Take 1 Univers e-ethinyl 3-19 tablet by ity o f estradiol 00:00: mouth [place] (ORTHO 00 daily. [place] [address],) 0.18/0.215/ 0.25 mg-35 mcg (28) tablet norgestimat 2020-0 Yes [id number] 1{tbl} Take 1 Univers e-ethinyl 3-19 tablet by ity o f estradiol 00:00: mouth [place] (ORTHO 00 daily. [place] [address],) 0.18/0.215/ 0.25 mg-35 mcg (28) tablet norgestimat 2020-0 2021- No [id number] 1{tbl} Take 1 Univers e-ethinyl 3-19 03-30 tablet by ity of estradiol 00:00: 00:00 mouth [place] (ORTHO 00 :00 daily. Medical TRI-CYCLEN, Branch 28,) 0.18/0.215/ 0.25 mg-35 mcg (28) tablet azithromyci 2019- 2020- No [id number] 1000mg Take 2 Univers n 500 mg 2-24 02-25 tablets by ity of tablet 00:00: 05:59 [place] 00 :[place] now for 1 Medical dose. Branch azithromyci 2019- 2020- No [id number] 1000mg Take 2 Univers n 500 mg 2-24 02-25 tablets by ity of tablet 00:00: 05:59 [place] :[place] now for 1 [facility] dose. Branch No known [facility] Immunizations Ordered Filled Immunization Date Status Comments Sour e Immunization Name Name [facility] 2021-03-09 Completed University of 00:00:00 [facility] TDAP 2021-03-09 Completed University of 00:00:00 [facility] TDAP 2021-03-09 Completed University of 00:00:00 [facility] TDAP 2021-03-09 Completed University of 00:00:00 [facility] TDAP 2021-03-09 Completed University of 00:00:00 [facility] TDAP 2021-03-09 Completed University of 00:00:00 [facility] TDAP 2021-03-09 Completed University of 00:00:00 [facility] Tdap 2016-09-18 Completed University of 00:00:00 [facility] Tdap 2016-09-18 Completed University of 00:00:00 [facility] Tdap 2016-09-18 Completed University of 00:00:00 [facility] Tdap 2016-09-18 Completed University of 00:00:00 [facility] Tdap 2016-09-18 Completed University of 00:00:00 [facility] Tdap 2016-09-18 Completed University of 00:00:00 [facility] Tdap 2016-09-18 Completed University of 00:00:00 [facility] Tdap 2016-09-18 Completed University of 00:00:00 [facility] Tdap 2016-09-18 Completed University of 00:00:00 [facility] Tdap 2016-09-18 Completed University of 00:00:00 [facility] Tdap 2016-09-18 Completed University of 00:00:00 [place] [facility] Tdap 2016-09-18 Completed University of 00:00:00 [place] [facility] Tdap 2016-09-18 Completed University of 00:00:00 [place] [facility] TDAP 2016-09-18 Completed University of 00:00:00 [place] [facility] TDAP 2016-09-18 Completed University of 00:00:00 [place] [facility] TDAP 2016-09-18 Completed University of 00:00:00 [place] [facility] TDAP 2016-09-18 Completed University of 00:00:00 [place] [facility] TDAP 2016-09-18 Completed University of 00:00:00 [facility] TDAP 2016-09-18 Completed University of 00:00:00 [facility] TDAP 2016-09-18 Completed University of 00:00:00 [facility] TDAP 2016-09-18 Completed University of 00:00:00 [facility] TDAP 2016-09-18 Completed University of 00:00:00 [facility] TDAP 2016-09-18 Completed University of 00:00:00 [facility] TDAP 2016-09-18 Completed University of 00:00:00 [place] [facility] TDAP 2016-09-18 Completed University of 00:00:00 [facility] TDAP 2016-09-18 Completed University of 00:00:00 [facility] TDAP 2016-09-18 Completed University of 00:00:00 [facility] TDAP 2016-09-18 Completed University of 00:00:00 [facility] TDAP 2016-09-18 Completed University of 00:00:00 [place] [facility] TDAP 2016-09-18 Completed University of 00:00:00 [place] [facility] TDAP 2016-09-18 Completed University of 00:00:00 [place] [facility] TDAP 2016-09-18 Completed University of 00:00:00 [place] [facility] TDAP 2016-09-18 Completed University of 00:00:00 [place] [facility] TDAP 2016-09-18 Completed University of 00:00:00 [place] [facility] TDAP 2016-09-18 Completed University of 00:00:00 [place] [facility] TDAP 2016-09-18 Completed University of 00:00:00 [place] [facility] TDAP 2016-09-18 Completed University of 00:00:00 [place] [facility] TDAP 2016-09-18 Completed University of 00:00:00 [place] [facility] TDAP 2016-09-18 Completed University of 00:00:00 [place] [facility] TDAP 2016-09-18 Completed University of 00:00:00 [place] [facility] TDAP 2016-09-18 Completed University of 00:00:00 [place] [facility] TDAP 2016-09-18 Completed University of 00:00:00 [place] [facility] TDAP 2016-09-18 Completed University of 00:00:00 [place] [facility] TDAP 2016-09-18 Completed University of 00:00:00 [facility] Vital Signs Vital Name Observation Time Observation Value Comments Source Systolic blood 2021-04-19 21:30:00 152 mm[Hg] Univer sity of pressure [facility] Diastolic blood 2021-04-19 21:30:00 98 mm[Hg] Unive rsity of pressure [facility] Heart rate 2021-04-19 21:14:00 89 /min Universi ty [facility] Body temperature 2021-04-19 21:14:00 36.78 Rebecca [facility] Oxygen saturation in 2021-04-19 21:14:00 100 /min [facility] Arterial blood by [facility] Pulse oximetry Branch Respiratory rate 2021-04-19 14:40:00 19 /min [facility] Body height 2021-04-15 03:34:00 160 cm [facility] Body weight 2021-04-15 03:34:00 88.451 kg [facility] BMI 2021-04-15 03:34:00 34.55 kg/m2 [facility] Systolic blood 2021-04-14 18:31:00 176 mm[Hg] Univer sity of pressure [facility] Diastolic blood 2021-04-14 18:31:00 100 mm[Hg] Unive rsity of pressure [facility] Heart rate 2021-04-14 18:25:00 72 /min Universi ty [facility] Body temperature 2021-04-14 18:25:00 36.39 [facility] 2021-04-14 18:25:00 16 /[facility] Body height 2021-04-14 18:25:00 160 cm [facility] [place] [facility] Body weight 2021-04-14 18:25:00 88.508 kg Universi ty [facility] [place] [facility] BMI 2021-04-14 18:25:00 34.56 kg/m2 [facility] [place] [facility] Systolic blood 2021-03-09 21:14:00 131 mm[Hg] Univer sity of pressure [place] [facility] Diastolic blood 2021-03-09 21:14:00 80 mm[Hg] Unive rsity of pressure [place] [facility] Heart rate 2021-03-09 21:14:00 89 /min Universi ty [facility] [place] [facility] Body temperature 2021-03-09 21:14:00 37.11 Rebecca [facility] ers[facility] [place] [facility] Respiratory rate 2021-03-09 21:14:00 16 /min Univ ersity of [place] [facility] Body height 2021-03-09 21:14:00 160 cm [facility]i ty [facility] [place] [facility] Body weight 2021-03-09 21:14:00 84.029 kg [facility]i [facility] [place] [facility] BMI 2021-03-09 21:14:00 32.82 kg/m2 [facility] [place] [facility] Systolic blood 2021-02-09 19:04:00 110 mm[Hg] Univer sity of pressure [place] [facility] Diastolic blood 2021-02-09 19:04:00 71 mm[Hg] Unive rsity of pressure [place] [facility] Heart rate 2021-02-09 19:04:00 107 /min [facility]i [facility] [place] [facility] Body temperature 2021-02-09 19:04:00 36.83 Rebecca [facility] ers[facility] [place] [facility] Respiratory rate 2021-02-09 19:04:00 16 /min Univ ersity of [place] [facility] Body height 2021-02-09 19:04:00 160 cm [facility]i ty [facility] [place] [facility] Body weight 2021-02-09 19:04:00 84.414 kg [facility]i ty [facility] [place] [facility] BMI 2021-02-09 19:04:00 32.97 kg/m2 [facility] ty of [place] [facility] Systolic blood 2021-01-11 19:12:00 113 mm[Hg] Univer sity of pressure [place] [facility] Diastolic blood 2021-01-11 19:12:00 72 mm[Hg] Unive rsity of pressure [place] [facility] Heart rate 2021-01-11 19:12:00 90 /min [facility]i [facility] [place] [facility] Body temperature 2021-01-11 19:12:00 36.78 Rebecca [facility] ers[facility] [place] [facility] Respiratory rate 2021-01-11 19:12:00 16 /min Univ ersity [facility] [place] [facility] Body height 2021-01-11 19:12:00 160 cm [facility]i [facility] [place] [facility] Body weight 2021-01-11 19:12:00 82.781 kg [facility] [place] [facility] BMI 2021-01-11 19:12:00 32.33 kg/m2 [facility] [place] [facility] Systolic blood 2020-12-14 16:03:00 119 mm[Hg] Univer sity of pressure [place] [facility] Diastolic blood 2020-12-14 16:03:00 78 mm[Hg] Unive rsity of pressure [place] [facility] Heart rate 2020-12-14 16:03:00 88 /min [facility] [place] [facility] Body temperature 2020-12-14 16:03:00 36.22 Rebecca [facility] ers[facility] [place] [facility] Respiratory rate 2020-12-14 16:03:00 16 /min Univ ersity [facility] [place] [facility] Body height 2020-12-14 16:03:00 160 cm [facility] [place] [facility] Body weight 2020-12-14 16:03:00 82.668 kg [facility] [place] [facility] BMI 2020-12-14 16:03:00 32.28 kg/m2 [facility] [place] [facility] Systolic blood 2020-11-16 15:15:00 126 mm[Hg] Univer sity of pressure [place] [facility] Diastolic blood 2020-11-16 15:15:00 81 mm[Hg] Unive rsity of pressure [place] [facility] Heart rate 2020-11-16 15:15:00 89 /min [facility] [place] [facility] Body temperature 2020-11-16 15:15:00 37.17 Rebecca [facility] ers[facility] [place] [facility] Respiratory rate 2020-11-16 15:15:00 16 /min Univ ersity [facility] [place] [facility] Body height 2020-11-16 15:15:00 160 cm [facility] [place] [facility] Body weight 2020-11-16 15:15:00 81.194 kg [facility] [place] [facility] BMI 2020-11-16 15:15:00 31.71 kg/m2 [facility] [place] [facility] Systolic blood 2020-10-19 15:00:00 121 mm[Hg] Univer sity of pressure [place] [facility] Diastolic blood 2020-10-19 15:00:00 80 mm[Hg] Unive rsity of pressure [place] [facility] Heart rate 2020-10-19 15:00:00 94 /min [facility] [place] [facility] Body temperature 2020-10-19 14:59:00 36.67 Rebecca [facility] [place] [facility] Respiratory rate 2020-10-19 14:59:00 16 /min Univ ersity [facility] [place] [facility] Body height 2020-10-19 14:59:00 161.5 cm [facility] [place] [facility] Body weight 2020-10-19 14:59:00 82.101 kg [facility] [place] [facility] BMI 2020-10-19 14:59:00 31.46 kg/m2 [facility] [place] [facility] Systolic blood 2020-09-21 19:30:00 113 mm[Hg] Univer sity of pressure [place] [facility] Diastolic blood 2020-09-21 19:30:00 79 mm[Hg] Unive rsity of pressure [facility] Heart rate 2020-09-21 19:30:00 104 /min [facility] [place] [facility] Body temperature 2020-09-21 19:30:00 36.89 Rebecca [facility] ers[facility] [place] [facility] Respiratory rate 2020-09-21 19:30:00 16 /min Univ ersity [facility] Body height 2020-09-21 19:30:00 160 cm [facility] [place] [facility] Body weight 2020-09-21 19:30:00 82.101 kg [facility] [place] [facility] BMI 2020-09-21 19:30:00 32.06 kg/m2 [facility] [place] [facility] Systolic blood 2019-12-04 19:25:00 129 mm[Hg] Univer sity of pressure [facility] Diastolic blood 2019-12-04 19:25:00 88 mm[Hg] Unive rsity of pressure [facility] Heart rate 2019-12-04 19:24:00 76 /min [facility] [place] [facility] Body temperature 2019-12-04 19:24:00 36.56 Rebecca [facility] 2019-12-04 19:24:00 16 /min [facility] Body height 2019-12-04 19:24:00 160 cm Universi ty of [facility] Body weight 2019-12-04 19:24:00 86.637 kg Universi ty of [facility] BMI 2019-12-04 19:24:00 33.83 kg/m2 Universi ty of [facility] Systolic blood 2019-11-06 20:39:00 119 mm[Hg] [facility] Diastolic blood 2019-11-06 20:39:00 83 [facility]Hg[facility] 20:39:00 96 /min Universi ty of [facility] Body temperature 2019-11-06 20:39:00 36.72 Rebecca [facility] Respiratory rate 2019-11-06 20:39:00 16 /min [facility] Body height 2019-11-06 20:39:00 160 cm Universi ty of [facility] Body weight 2019-11-06 20:39:00 85.333 kg [facility] BMI 2019-11-06 20:39:00 33.32 kg/m2 [facility] Procedures Procedure Date / Time Performing Clinician Source Performed HB ABO GROUPING 2021-04-19 05:06:00 Anthony Harry [facility] CBC WITH DIFF 2021-04-18 07:33:00 Amber Fonseca [facility] SGOT (ASPARTATE AMINO 2021-04-17 13:56:00 [facility] Medical Branch CREATININE 2021-04-17 13:56:00 Amber Fonseca [facility] ALANINE AMINO 2021-04-17 13:56:00 [facility] TRANSFERASE(SGPT Medical Branch LACTATE DEHYDROGENASE 2021-04-17 13:56:00 Amber Fonseca [facility] URIC ACID 2021-04-17 13:56:00 Amber Fonseca [facility] CBC WITH DIFF 2021-04-17 13:56:00 [facility] CORD GAS 2021-04-17 07:02:00 Raymundo [facility] URINALYSIS 2021-04-17 00:15:00 Vu, [facility] PROTEIN CREAT RATIO URINE 2021-04-17 00:15:00 [facility] (ASPARTATE AMINO 2021-04-17 00:14:00 Vu, [facility] TRANSFER) Medical Branch CREATININE 2021-04-17 00:14:00 Vu, [facility] ALANINE AMINO 2021-04-17 00:14:00 Vu, [facility] TRANSFERASE(SGPT Medical [place] LACTATE DEHYDROGENASE 2021-04-17 00:14:00 Vu, [facility] URIC ACID 2021-04-17 00:14:00 Vu, [facility] CBC WITH DIFF 2021-04-17 00:14:00 Vu, [facility] HB ABO GROUPING 2021-04-16 04:16:00 Lluvia Che [facility] RHO (D) IMMUNE GLOBULIN 2021-04-16 04:16:00 Amber Fonseca [facility] GROUP B STREPTOCOCCUS BY 2021-04-15 14:39:00 Aniya Duran [facility] PROTEIN CREAT RATIO URINE 2021-04-15 07:32:00 Fish, Migdalia Un [facility] GALV ONLY - [place] 2021-04-15 06:23:00 Lluvia Che [facility] IGG/IGM [facility] POCT GLUCOSE (AUTOMATED) 2021-04-15 06:11:00 Herrera Boles [facility] GROUP B STREPTOCOCCUS BY 2021-04-14 21:59:00 Jessa Vieira [facility] SGOT (ASPARTATE AMINO 2021-04-14 21:52:00 Vieira Jessa [facility] TRANSFER) Medical Branch CREATININE 2021-04-14 21:52:00 Vieira, Jessa Cam [facility] ALANINE AMINO 2021-04-14 21:52:00 Jessa Vieira [facility] TRANSFERASE(SGPT Medical Branch LACTATE DEHYDROGENASE 2021-04-14 21:52:00 Jessa Vieira Jeremias [facility] URIC ACID 2021-04-14 21:52:00 Jessa Vieira Jeremias [facility] CBC WITH DIFF 2021-04-14 21:52:00 Jessa Vieira Jeremias [facility] URINALYSIS 2021-04-14 21:52:00 Jessa Vieira [facility] HEPATITIS B SURFACE 2021-04-14 21:52:00 Dariel Jessaraymond Mcd[facility] ANTIGEN [facility] ADC OR AMANDO ONLY - RPR 2021-04-14 21:52:00 VieiraJessa Jeremias [facility] HIV 1/2 AG-AB WITH REFLEX 2021-04-14 21:52:00 VieiraJessa Jeremias [facility] COVID-19 (ID NOW RAPID 2021-04-14 21:52:00 Jessa Vieira Jeremias [facility] TESTING) Medical Branch LAB ONLY COVID 2021-04-14 21:52:00 Jessa Vieira Jeremias [facility] HB ABO GROUPING 2021-04-14 21:45:00 Jessa Vieira [facility] NOTICE OF PRIVACY 2021-04-14 20:32:12 Doctor Unassigned, [facility] PRACTICES [place] [facility] [place] CONSENT/REFUSAL FOR 2021-04-14 20:31:36 Doctor Unassnguyen, [facility] DIAGNOSIS AND TREATMENT [facility]INALYS[facility] 2021-04-14 18:27:00 Karla Rosales [facility] CBC WITH DIFF 2021-03-09 21:51:00 Karla Rosales [facility] HIV 1/2 AG-AB WITH REFLEX 2021-03-09 21:51:00 Karla Rosales [facility] GALV ONLY - [place] 2021-03-09 21:51:00 Karla Rosales [facility] IGG/IGM Medical Branch TDAP VACCINE, >11 YRS, IM 2021-03-09 21:29:50 Karla Rosales [facility] POCT URINALYSIS 2021-01-11 19:13:00 Karla Rosales [facility] POCT URINALYSIS 2020-12-14 16:06:00 Karla Rosales [facility] POCT URINALYSIS 2020-11-16 16:33:00 Karla Rosales [facility] GC & CHLAMYDIA AMPLIFIED 2020-09-21 21:36:00 Karla Rosales [facility] ASSAY [facility] GLUCOSE 1 HOUR POST 2020-09-21 20:34:00 Karla Rosales [facility] CBC WITH DIFF 2020-09-21 20:34:00 Karla Rosales [facility] RUBELLA SCREEN IGG 2020-09-21 20:34:00 Karla Rosales [facility] VZV ANTIBODY SCREEN 2020-09-21 20:34:00 Karla Rosales [facility] HEPATITIS B SURFACE 2020-09-21 20:34:00 Karla Rosales [facility] HB ABO GROUPING 2020-09-21 20:34:00 Karla Rosales [facility] HIV 1/2 AG-AB WITH REFLEX 2020-09-21 20:34:00 Karla Rosales [facility] GALV ONLY - [place] 2020-09-21 20:34:[address] [facility]IGM [facility] SARS-COV-2 IGG 2020-09-21 20:34:00 Karla Rosales [facility] POCT URINALYSIS W/O 2020-09-21 19:24:00 Karla Rosales Uni [facility] POCT TEST 2020-09-21 19:23:00 Karla Rosales [facility] CONSENT/REFUSAL FOR 2020-09-21 19:04:19 Doctor Unassigned, Unive [facility] DIAGNOSIS AND TREATMENT [place] [facility] [place] POCT TEST 2019-12-04 20:21:00 Karla Rosales [facility] DISCLOSURE AND CONSENT 2019-12-04 05:01:00 Doctor Unassigned, Un [facility] MEDICAL & SURGICAL [place] [facility] [place] PROCEDURES - HYSTEY PAP SMEAR-LIQUID BASED-CP 2019-11-06 22:27:00 Karla Rosales [facility] POCT TEST 2019-11-06 20:53:00 Karla Rosales [facility] ASSIGNMENT OF BENEFITS 2019-11-06 20:23:26 [facility] [place] [facility] [place] Encounters Start End Encounter Admission Attending Care Care Encounter Source Date/Time Date/Time Type Type Clinicians Facility Department ID 2021-07-18 Emergency [facility] [id number] Univers 11:50:35 [facility] 2021-07-06 2021-07-06 Outpatient Emilee SOTO [facility] [id number] Univers 09:00:00 09:00:00 DIPESH [id number] [facility] 2021-07-06 2021-07-06 Outpatient Emilee SOTO [facility] [id number] Univers 09:00:00 09:00:00 DIPESH [facility] 2021-06-24 2021-06-24 Outpatient Emilee SOTO [facility] [id number] Univers 11:00:00 11:00:00 DIPESH [id number] [facility] 2021-06-24 2021-06-24 Outpatient Emilee SOTO [facility] [id number] Univers 11:00:00 11:00:00 DIPESH [facility] 2021-05-25 2021-05-25 Outpatient VALDO [facility] [id number] Univers 07:00:00 07:00:00 ZAHIRA [id number] [facility] 2021-04-27 2021-04-27 Outpatient R CONNIE [facility] [id number] Univers 13:45:00 13:45:00 KARLA [id number] ity o f [facility] 2021-04-27 2021-04-27 [facility] [id number] Univers 13:45:00 13:45:00 KARLA ity o f [facility] 2021-04-27 2021-04-27 Outpatient R [facility] [id number] Univers 10:00:00 10:00:00 ity [facility] 2021-04-25 2021-04-25 1.2.840.1 1.2.840.114 [id number] Univers 00:00:00 00:00:00 Encounter [id number] 350.1.13.10 ity 3.104.2.7 [place].2.696 [place][id number] 570 [facility] 2021-04-20 2021-04-20 Outpatient R DARIEL JESSA [facility] [id number] Univers 10:00:00 10:00:00 [id number] ity of [facility] 2021-04-20 2021-04-20 Outpatient R DARIEL JESSA [facility] [id number] Univers 10:00:00 10:00:00 ity [facility] 2021-04-14 2021-04-19 Jessa Fox 1.2.840.114 [id number] Univers 15:57:00 17:11:00 Encounter Herrera Boles 350.1.13.10 ity of HOSPITAL 4.2.7.2.686 [place] [phone] [place] [address] Branch 2021-04-15 2021-04-15 Letter Nathalia [facility] 1.2.840.114 [id number] Univers 00:00:00 00:00:00 (Out) Jacquelinemosonny PRIMARY 350.1.13.10 ity of C[place].2.[place] [phone] Il dical 044 Branch 2021-04-14 2021-04-14 Outpatient R CONNIE [facility] [id number] Univers 15:15:00 15:15:00 KARLA [id number] ity o f [facility] 2021-04-14 2021-04-14 Outpatient R CONNIE, [facility] [id number] Univers 15:15:00 15:15:00 KARLA ity o f [facility] 2021-04-14 2021-04-14 Routine [facility], [facility] 1.2.605.037 [id number] Univers 13:00:54 13:46:34 Karla C STOCK FEEDER 350.1.13.10 ity of Visit REGIONAL 4.2.7.2.686 [place] MATERNAL [phone] [facility] & CHILD [address] [place] [address] 2021-04-14 2021-04-14 Telephone [facility] 1.2.840.114 [id number] Univers 00:00:00 00:00:00 Karla C STOCK FEEDER 350.1.13.10 ity of REGIONAL 4.2.7.2.686 [place] MATERNAL [id number] [facility] & CHILD [address] [place] [address] 2021-04-04 2021-04-04 Outpatient R DARIEL [facility] [id number] Univers 10:00:00 10:00:00 [id number] [facility] 2021-04-04 2021-04-04 Outpatient R DARIEL [facility] [id number] Univers 10:00:00 10:00:00 ity of [facility] 2021-03-23 2021-03-23 Outpatient AKINROSYPE, [facility] [id number] Univers 16:00:00 16:00:00 KARLA [id number] ity o f [facility] 2021-03-23 2021-03-23 Outpatient R CONNIE, [facility] [id number] Univers 16:00:00 16:00:00 KARLA ity o f [facility] 2021-03-15 2021-03-15 Outpatient R [facility] [id number] Univers 08:15:00 08:15:00 [id number] ity [facility] 2021-03-15 2021-03-15 Outpatient R [facility] [id number] Univers 08:15:00 08:15:00 ity of [facility] 2021-03-09 2021-03-09 Routine Akinsipe, [facility] 1.2.477.188 [id number] Univers 15:54:04 16:53:16 Karla C STOCK FEEDER 350.1.13.10 ity of Visit REGIONAL 4.2.7.2.686 [place] MATERNAL [id number] [facility] & CHILD [address] [place] [address] 2021-03-09 2021-03-09 Outpatient R AKINSIPE, [facility] [id number] Univers 16:00:00 16:00:00 KARLA [id number] ity o [facility] 2021-03-09 2021-03-09 Outpatient R AKINSIPE, [facility] [id number] Univers 16:00:00 16:00:00 KARLA ity o [facility] 2021-02-22 2021-02-22 Outpatient R AKINSIPE, [facility] [id number] Univers 08:15:00 08:15:00 KARLA [id number] ity o [facility] 2021-02-22 2021-02-22 Outpatient R AKINSIPE, [facility] [id number] Univers 08:15:00 08:15:00 KARLA ity o [facility] 2021-02-09 2021-02-09 Routine Akinsipe, [facility] 1.2.947.690 [id number] Univers 13:50:03 14:16:12 Karla C STOCK FEEDER 350.1.13.10 ity of Visit REGIONAL 4.2.7.2.686 [place] MATERNAL [phone] [facility] & CHILD [address] [place] [address] 2021-02-09 2021-02-09 Outpatient R AKINSIPE, [facility] [id number] Univers 13:45:00 13:45:00 KARLA [id number] ity o [facility] 2021-02-09 2021-02-09 Outpatient R AKINSIPE, [facility] [id number] Univers 13:45:00 13:45:00 KARLA ity o [facility] 2021-02-08 2021-02-08 Outpatient R AKINSIPE, [facility] [id number] Univers 14:15:00 14:15:00 KARLA [id number] ity o f [facility] 2021-02-08 2021-02-08 Outpatient R AKINSIPE, [facility] [id number] Univers 14:15:00 14:15:00 KARLA ity o f [facility] 2021-01-12 2021-01-12 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 [facility]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[facility] 1.2 .840.114 [id number] Univers 13:31:46 14:46:46 Visit Ramonita Thomson STOCK FEEDER 350.1.13.10 ity of REGIONAL 4.2.7.2.686 [place] MATERNAL [phone] [facility] & CHILD [address] [place] [address] 2021-01-12 2021-01-12 Outpatient R [facility] [id number] Univers 13:30:00 13:30:00 [id number] ity of [facility] 2021-01-12 2021-01-12 Outpatient P [facility] [id number] Univers 13:30:00 13:30:00 ity [facility] 2021-01-12 2021-01-12 Abstract [facility] 1.2.840.114 [id number] Univers 00:00:00 00:00:00 Karla Mendoza STOCK FEEDER 350.1.13.10 ity of REGIONAL 4.2.7.2.686 [place] MATERNAL [id number] [facility] & [address] 2021-01-11 2021-01-11 Routine Akinpe, [facility] 1.2.051.316 [id number] Univers 13:49:39 14:44:46 Karla C STOCK FEEDER 350.1.13.10 ity of Visit REGIONAL 4.2.7.2.686 [place] MATERNAL [id number] [facility] & CHILD [address] [place] [address] 2021-01-11 2021-01-11 Outpatient R AKINSIPE, [facility] [id number] Univers 14:00:00 14:00:00 [facility]LA [id number] [facility] 2021-01-11 2021-01-11 Outpatient R CONNIE, [facility] [id number] Univers 14:00:00 14:00:00 KARLA [facility] 2020-12-14 2020-12-14 [facility] 1.2.840.114 [id number] Univers 10:55:26 11:25:28 Brad R STOCK FEEDER 350.1.13.10 ity of Visit REGIONAL 4.2.7.2.686 [place] MATERNAL [id number] [facility] & CHILD [address] [place] [address] 2020-12-14 2020-12-14 Outpatient R ASHWINI [facility] [id number] Univers 11:00:00 11:00:00 BRAD [facility] 2020-12-14 2020-12-14 Out[facility] [id number] Univers 09:15:00 09:15:00 KARLA [id number] [facility] 2020-12-14 2020-12-14 Outpatient R CONNIE, [facility] [id number] Univers 09:15:00 09:15:00 KARLA [facility] 2020-12-08 2020-12-08 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 114 [id number] Univers 08:30:34 08:48:04 Visit Karla Rosales STOCK FEEDER 350.1.13. 10 ity of REGIONAL 4.2.7.2.686 [place] MATERNAL [phone] [facility] & CHILD [address] [place] [address] 2020-12-08 2020-12-08 Outpatient [facility] [id number] Univers 08:30:00 08:30:00 [id number] [facility] 2020-12-08 2020-12-08 Outpatient R CONNIE, [facility] [id number] Univers 08:30:00 08:30:00 [facility] [place] 2020-12-07 2020-12-07 Patient [facility] 1.2.840.114 [id number] Univers 00:00:00 00:00:00 Outreach [place] PRIMARY 350.1.13.10 i ty of [facility] 4.2.7.2.686 Emmie TAPIA [id number] [address] 2020-12-03 2020-12-03 Telephone [facility] 1.2.840.114 [id number] Univers 00:00:00 00:00:00 Karla Mendoza STOCK FEEDER 350.1.13.10 ity of [facility] 4.2.7.2.686 [place] MATERNAL [phone] [facility] & CHILD [address] [place] [address] 2020-11-29 2020-11-29 Outpatient R [facility] [id number] Univers 08:00:00 08:00:00 [id number] ity [facility] 2020-11-29 2020-11-29 Outpatient R [facility] [id number] Univers 08:00:00 08:00:00 ity [facility] 2020-11-22 2020-11-22 Outpatient R [facility] [id number] Univers 08:30:00 08:30:00 [id number] ity [facility] 2020-11-22 2020-11-22 Outpatient [facility] [id number] Univers 08:30:00 08:30:00 KARLA hamlin o f [facility] 2020-11-19 2020-11-19 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 840.114 [id number] Univers 11:15:32 12:00:32 Visit Annetta Moscoso STOCK FEEDER 350.1. 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 114 [id number] Univers 11:16:50 11:56:16 Visit Tamiko Metcalf STOCK FEEDER 350.1.13.10 ity of REGIONAL 4.2.7.2.686 [place] MATERNAL [phone] Med ical & CHILD [address] [facility] 2020-11-19 2020-11-19 Outpatient R [facility] [id number] Univers 11:00:00 11:00:00 [id number] [facility] 2020-11-19 2020-11-19 Outpatient P [facility] [id number] Univers 11:00:00 [facility]:00[facility] 2020-11-19 2020-11-19 Abstract [facility] 1.2.840.114 [id number] Univers 00:00:00 00:00:00 Karla Mendoza STOCK FEEDER 350.1.13.10 ity of REGIONAL 4.2.7.2.686 [place] MATERNAL [id number] [facility] & CHILD [address] [place] [address] 2020-11-18 2020-11-18 Outpatient R [facility] [id number] Univers 08:30:00 08:30:00 [id number] [facility] 2020-11-18 2020-11-18 Outpatient R [facility] [id number] Univers 08:30:00 08:30:00 [facility] 2020-11-16 2020-11-16 Routine [facility] 1.2.512.540 [id number] Univers 09:04:35 09:37:14 Karla Mendoza STOCK FEEDER 350.1.13.10 ity of Visit REGIONAL 4.2.7.2.686 [place] MATERNAL [phone] [facility] & CHILD [address] [place] [address] 2020-11-16 2020-11-16 Outpatient [facility] [id number] Univers 09:00:00 09:00:00 KARLA [id number] ity o [facility] 2020-11-16 2020-11-16 Outpatient [facility] [id number] Univers 09:00:00 09:00:00 KARLA ity o [facility] 2020-11-16 2020-11-16 Telephone [facility] 1.2.840.114 [id number] Univers 00:00:00 00:00:00 Karla C STOCK FEEDER 350.1.13.10 ity of REGIONAL 4.2.7.2.686 [place] MATERNAL [id number] [facility] & CHILD [address] [place] [address] 2020-11-10 2020-11-10 Outpatient R [facility] [id number] Univers 08:00:00 08:00:00 [id number] ity of [facility] 2020-11-09 2020-11-09 Outpatient R [facility] [id number] Univers 07:45:00 07:45:00 [id number] ity [facility] 2020-11-09 2020-11-09 Outpatient R [facility] [id number] Univers 07:45:00 07:45:00 ity of [facility] 2020-10-29 2020-10-29 Outpatient R [facility] [id number] Univers 08:15:00 08:15:00 [id number] ity of [facility] 2020-10-29 2020-10-29 Outpatient R AKINSIPE, [facility] [id number] Univers 08:15:00 08:15:00 KARLA ity o f [facility] 2020-10-27 2020-10-27 Outpatient R [facility] [id number] Univers 08:30:00 08:30:00 [id number] ity of [facility] 2020-10-27 2020-10-27 Outpatient R [facility] [id number] Univers 08:30:00 08:30:00 ity [facility] 2020-10-19 2020-10-19 Routine Akinsipe, [facility] 1.2.485.997 [id number] Univers 08:51:28 09:14:08 Karla Mendoza STOCK FEEDER 350.1.13.10 ity of Visit REGIONAL 4.2.7.2.686 [place] MATERNAL [id number] [facility] & CHILD [address] [place] [address] 2020-10-19 2020-10-19 Outpatient R AKINSIPE, [facility] [id number] Univers 09:00:00 09:00:00 KARLA [id number] ity o f [facility] 2020-10-19 2020-10-19 Outpatient R AKINROSYPE, [facility] [id number] Univers 09:00:00 09:00:00 KARLA ity o f [facility] 2020-10-13 2020-10-13 Outpatient [facility] [id number] Univers 08:00:00 08:00:00 [id number] ity of [facility] 2020-10-13 2020-10-13 Outpatient [facility] [id number] Univers 08:00:00 08:00:00 KARLA ity o f [facility] 2020-10-05 2020-10-05 [facility] 1.2.840.114 [id number] Univers 00:00:00 00:00:00 Karla Mendoza STOCK FEEDER 350.1.13.10 ity of REGIONAL 4.2.7.2.686 [place] MATERNAL [phone] Med ical & CHILD [address] [place] [address] 2020-09-30 2020-09-30 Outpatient R [facility] [id number] Univers 09:20:00 09:20:00 [id number] ity of [facility] 2020-09-30 2020-09-30 Outpatient R [facility] [id number] Univers 09:20:00 09:20:00 ity of [facility] 2020-09-28 2020-09-28 Outpatient R [facility] [id number] Univers 08:30:00 08:30:00 [id number] ity of [facility] 2020-09-28 2020-09-28 Outpatient R [facility] [id number] Univers 08:30:00 08:30:00 ity [facility] 2020-09-27 2020-09-27 Telephone [facility] 1.2.840.114 [id number] Univers 00:00:00 00:00:00 Karla Mendoza STOCK FEEDER 350.1.13.10 ity of REGIONAL 4.2.7.2.686 [place] MATERNAL [id number] [facility] ical & CHILD [address] [place] [address] 2020-09-23 2020-09-23 Outpatient R [facility] [id number] Univers 08:45:00 08:45:00 [id number] ity of [facility] 2020-09-23 2020-09-23 Outpatient R CONNIE [facility] [id number] Univers 08:45:00 08:45:00 KARLA ity o f [facility] 2020-09-22 2020-09-22 Telephone Connie [facility] 1.2.840.114 [id number] Univers 00:00:00 00:00:00 Karla Mendoza STOCK FEEDER 350.1.13.10 ity of REGIONAL 4.2.7.2.686 [place] MATERNAL [id number] [facility] ical & CHILD [address] [place] [address] 2020-09-21 2020-09-21 Initial Connie [facility] [id number] [id number] Univers 13:21:00 14:29:46 Karla Mendoza STOCK FEEDER 350.1.13.10 ity of Visit REGIONAL 4.2.7.2.686 [place] MATERNAL [id number] [facility] & [address] 2020-09-21 2020-09-21 Outpatient CONNIE, [facility] [id number] Univers 13:30:00 13:30:00 KARLA [id number] ity o [facility] 2020-09-21 2020-09-21 Outpatient [facility] [id number] Univers 13:30:00 13:30:00 KARLA brooksy o [facility] 2020-09-21 2020-09-21 Orders Doctor RODRIGES 1.2.840.114 [id number] Univers 00:00:00 00:00:00 Only Unassigned, CARLITA 350.1.13.10 [place]y of [place] [facility] 4.2.7.2.686 [place] [id number] [address] 2020-03-05 2020-03-05 Outpatient R [facility] [id number] Univers 10:30:00 10:30:00 [id number] ity of [facility] 2020-03-05 2020-03-05 Outpatient R [facility] [id number] Univers 10:30:00 10:30:00 ity of [facility] 2020-02-06 2020-02-06 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 114 [id number] Univers 13:04:49 13:36:46 Visit Karla Rosales STOCK FEEDER [id number] ity of [facility] [id number] [place] as MATERNAL [phone] [facility] ical & CHILD [address] [place] [address] 2020-02-06 2020-02-06 Outpatient [facility] [id number] Univers 13:00:00 13:00:00 [id number] ity [facility] 2020-02-06 2020-02-06 Outpatient [facility] [id number] Univers 13:00:00 13:00:00 KARLA hamlin o [facility] 2019-12-04 2019-12-04 [facility] [place] [id number] Univers 14:10:32 15:21:38 Visit Karla Mendoza STOCK FEEDER [id number] ity of [facility] [id number] [place] as MATERNAL [phone] [facility] & CHILD [address] [place] [address] 2019-12-04 2019-12-04 Outpatient [facility] [id number] Univers 14:15:00 14:15:00 KARLA [id number] yakelin o [facility] 2019-12-04 2019-12-04 [facility] [id number] Univers 14:15:00 14:15:00 KARLA hamlin o [facility] 2019-12-04 2019-12-04 Orders Doctor RODRIGES [id number] Univers 00:00:00 00:00:00 Only Unassigned, CARLITA 350.1.13.10 ity of [facility] 4.2.7.2.686 [place] as [phone] [address] 2019-11-20 2019-11-20 Outpatient R [facility] [id number] Univers 13:00:00 13:00:00 ity [facility] 2019-11-20 2019-11-20 Outpatient R [facility] [id number] Univers 13:00:00 13:00:00 ity of [facility] 2019-11-10 2019-11-10 Telephone [facility] 1.2.840.114 [id number] Univers 00:00:00 00:00:00 Karla C STOCK FEEDER 350.1.13.10 ity of [facility] 4.2.7.2.686 [place] as MATERNAL [phone] [facility] & CHILD [address] [place] [address] 2019-11-06 2019-11-06 Office [facility] [id number] Univers 14:26:33 15:33:57 Visit Karla C STOCK FEEDER 350.1.13.10 ity of [facility] 4.2.7.2.686 [place] as MATERNAL [phone] [facility] & [address] 2019-11-06 2019-11-06 Outpatient R [facility] [id number] Univers 14:15:00 15:33:57 KARLA ity o f [facility] 2019-11-06 2019-11-06 Orders Doctor ZAHIRA 1.2.840.114 [id number] Univers 00:00:00 00:00:00 Only Unassigned, CARLITA 350.1.13.10 ity of [place] [id number] [place] as [phone] [address] Results Test Description Test Time Test Comments Results Result Comments Source Type and Screen - ONCE Routine 2021-04-19 06:04:18 Test Item Value Reference Range Interpretation Comme nts ABO & RH (test code = 20) O POSITIVE Pe rformed at [facility] Laboratory Services - [facility] Blood [address] [place], [place] [address]Csqc Free: [phone] No. [id number] IAT (test code = 1185) Negative Perfo rmed at [facility] Laboratory [facility] Blood [address] [place], [place] [address]Kkpe Free: [phone] No. [id number] [facility] with Pyrrwcrpkeed2960-19-51 07:59:03 Test Item Value Reference Range Interpretation Comments WBC (test code = See_Comment [Automated 6690-2) message] The sy stem which generated this result transmitted reference range : 4.30 - 11.10 10*3/?L. The reference range was not used to interpret this result as normal/abnormal . RBC (test code = See_Comment L [Automated 789-8) message] The sy stem which generated this result transmitted reference range : 3.93 - 5.25 10*6/?L. The reference range was not used to interpret this result as normal/abnormal . HGB (test code = 7.6 g/dL 11.6-15.0 L 718-7) HCT (test code = 25.0 % 35.7-45.2 L 4544-3) MCV (test code = 73.7 fL 80.6-95.5 L 787-2) MCH (test code = 22.4 pg 25.9-32.8 L 785-6) MCHC (test code = 30.4 g/dL 31.6-35.1 L 786-4) RDW-SD (test code = 46.7 fL 39.0-49.9 08471-1) RDW-CV (test code = 18.0 % 12.0-15.5 H 788-0) PLT (test code = See_Comment L [Automated 777-3) message] The sy stem which generated this result transmitted reference range : 166 - 358 10*3/ ?L. The reference r cali was not used to interpret this result as normal/abnormal . MPV (test code = 9.3 fL 9.5-12.9 L 01715-6) NRBC/100 WBC (test See_Comment [Automat ed code = 6334236859) message] The system which generated this result transmitted reference range : 0.0 - 10.0 /100 WBCs. The refer ence range was not u sed to interpret th is result as normal/abnormal . NRBC x10^3 (test code <0.01 See_Comment [Auto mated = 0811817858) message] The s ystem which generated this result transmitted reference range : 10*3/?L. The reference range was not used to interpret this result as normal/abnormal . GRAN MAT (NEUT) % 67.1 % (test code = 770-8) IMM GRAN % (test code 0.90 % = 8838354320) LYMPH % (test code = 23.3 % 736-9) MONO % (test code = 8.4 % 5905-5) EOS % (test code = 0.1 % 713-8) BASO % (test code = 0.2 % 706-2) GRAN MAT x10^3(ANC) 5.75 10*3/uL 1.88-7.09 (test code = 9840456960) IMM GRAN x10^3 (test 0.08 10*3/uL 0.00-0.06 H code = 4374915379) LYMPH x10^3 (test code 2.00 10*3/uL 1.32-3.29 = 731-0) MONO x10^3 (test code 0.72 10*3/uL 0.33-0.92 = 742-7) EOS x10^3 (test code = <0.03 0.03-0.39 L 711-2) BASO x10^3 (test code <0.03 0.01-0.07 = 704-7) Lab Interpretation Abnormal (test code = 13066-2) [facility] Center[facility] Acid Tudsj4263-20-04 15:06:53 Test Item Value Reference Range Interpretation Comments URIC ACID (test code = 5190259946) 2.8 mg/dL 2.9-6.0 L Lab Interpretation (test code = Abnormal 46526-7) [facility] CenterSerum Uyjteevbmg0372-15-87 15:06:53 Test Item Value Reference Range Interpretation Comments CREATININE (test code = 0.42 mg/dL 0.50-1.04 L 2920112433) eGFR (test code = mL/min/1.73m2 9470355763) BING (test code = BING) Association of Glomerular Filtration Rate (GFR) and Staging of Kidney Disease* + --+ --+ ------+| GFR (mL/min/1.73 m2) ?| With Kidney Damage ?| ?Without Kidney Damage+ --------+ --------+ +| ?>90 ?| ?Stage one ?| ? Normal ?+ ---+ ---+ -------+| ?60-89 ?| ?Stage two ?| ? Decreased GFR ? + --+ --+ ------+| ?30-59 ?| ?Stage three ?| ? Stage three ? + --+ --+ ------+| ?15-29 ?| ?Stage four ? | ? Stage four ?+ ---+ ---+ -------+| ?<15 (or dialysis) ? ?| ?Stage five ? | ? Stage five ?+ ---+ ---+ -------+ *Each stage assumes the associated GFR level has been in effect for at least three months. ?Stages 1 to 5, with or without kidney disease, indicate chronic kidney disease. Notes: Determination of stages one and two (with eGFR >59mL/min/1.73 m2) requires estimation of kidney damage for at least three months as defined by structural or functional abnormalities of the kidney, manifested by either:Pathological abnormalities or Markers of kidney damage (including abnormalities in the composition of the blood or urine or abnormalities in imaging tests). Lab Interpretation Abnormal (test code = 33994-5) [facility] CenterSGOT (Asparate Amino Transfer)2021-04-17 15:06:53 Test Item Value Reference Range Interpretation Comments AST(SGOT) (test code = 5095416614) 17 U/L 13-40 Lab Interpretation (test code = Normal 64476-0) [facility] CenterAlanine Amino Transferase (SGPT)2021-04-17 15:06:52 Test Item Value Reference Range Interpretation Comments ALTv (test code = 1742-6) 9 U/L 5-35 Lab Interpretation (test code = Normal 96244-1) [facility] CenterLactate Qwytvsdjyohdc5642-37-84 15:06:12 Test Item Value Reference Range Interpretation Comments LDH (test code = 0396586987) 780 U/L 300-600 H Lab Interpretation (test code = Abnormal 73157-8) [facility] CenterCB with Ezrchgbfdwmc0289-67-85 14:23:32 Test Item Value Reference Range Interpretation Comments WBC (test code = See_Comment [Automated 2842-2) message] The sy stem which generated this result transmitted reference range : 4.30 - 11.10 10*3/?L. The reference range was not used to interpret this result as normal/abnormal . RBC (test code = See_Comment L [Automated 789-8) message] The sy stem which generated this result transmitted reference range : 3.93 - 5.25 10*6/?L. The reference range was not used to interpret this result as normal/abnormal . HGB (test code = 8.6 g/dL 11.6-15.0 L 718-7) HCT (test code = 27.6 % 35.7-45.2 L 4544-3) MCV (test code = 73.0 fL 80.6-95.5 L 787-2) MCH (test code = 22.8 pg 25.9-32.8 L 785-6) MCHC (test code = 31.2 g/dL 31.6-35.1 L 786-4) RDW-SD (test code = 46.2 fL 39.0-49.9 58643-1) RDW-CV (test code = 18.1 % 12.0-15.5 H 788-0) PLT (test code = See_Comment [Automated 777-3) message] The sy stem which generated this result transmitted reference range : 166 - 358 10*3/ ?L. The reference r cali was not used to interpret this result as normal/abnormal . MPV (test code = 9.8 fL 9.5-12.9 11801-6) NRBC/100 WBC (test See_Comment [Automat ed code = 1032984569) message] The system which generated this result transmitted reference range : 0.0 - 10.0 /100 WBCs. The refer ence range was not u sed to interpret th is result as normal/abnormal . NRBC x10^3 (test code <0.01 See_Comment [Auto mated = 1791543714) message] The s ystem which generated this result transmitted reference range : 10*3/?L. The reference range was not used to interpret this result as normal/abnormal . GRAN MAT (NEUT) % 77.6 % (test code = 770-8) IMM GRAN % (test code 0.90 % = 6716343749) LYMPH % (test code = 13.4 % 736-9) MONO % (test code = 8.1 % 5905-5) EOS % (test code = 0.0 % 713-8) BASO % (test code = 0.0 % 706-2) GRAN MAT x10^3(ANC) 8.08 10*3/uL 1.88-7.09 H (test code = 9823601008) IMM GRAN x10^3 (test 0.09 10*3/uL 0.00-0.06 H code = 4925277876) LYMPH x10^3 (test code 1.39 10*3/uL 1.32-3.29 = 731-0) MONO x10^3 (test code 0.84 10*3/uL 0.33-0.92 = 742-7) EOS x10^3 (test code = <0.03 0.03-0.39 L 711-2) BASO x10^3 (test code <0.03 0.01-0.07 = 704-7) Lab Interpretation Abnormal (test code = 16091-5) [facility] CenterRHO (D) IMMUNE TVRMLKFN0612-59-93 12:55:49 Test Item Value Reference Range Interpretation Comments RHIG CANDIDATE? No- see comment Patient i s not a (test code = candidate for R hIg- 5055) Patient is Rh Positive.Perfor med at [facility] Laboratory Services - [facility] Blood [address] [place], [place] [address]Toll Free: [phone] A No. [id number] [facility] CenterVENOUS CORD IOK9608-15-76 07:19:07 Test Item Value Reference Range Interpretation Comments VENOUS BASE EXCESS, CORD mEq/L (test code = 4042955299) VENOUS PH, CORD (test 7.25-7.45 code = 0810321349) VENOUS PC02, CORD (test See_Comment H [Au tomated message] code = 4430226361) The syste m which generated this result transmitted ref erence range: 27 - 49 mmHg. The reference r cali was not used to interpret this result as normal/abnor mal. VENOUS PO2, CORD (test See_Comment [Aut omated message] code = 6589092305) The syste m which generated this result transmitted ref erence range: 17 - 41 mmHg. The reference r cali was not used to interpret this result as normal/abnor mal. VENOUS BICARBONATE, CORD See_Comment [A utomated message] (test code = 5664894825) The system which generated this result transmitted ref erence range: 12 - 29 mEq/L. The reference r cali was not used to interpret this result as normal/abnor mal. Lab Interpretation (test Abnormal code = 00318-7) [facility] with Rennzpekckpy1469-98-72 01:06:37 Test Item Value Reference Range Interpretation Comments WBC (test code = See_Comment [Automated 6690-2) message] The sy stem which generated this result transmitted reference range : 4.30 - 11.10 10*3/?L. The reference range was not used to interpret this result as normal/abnormal . RBC (test code = See_Comment [Automated 789-8) message] The sy stem which generated this result transmitted reference range : 3.93 - 5.25 10*6/?L. The reference range was not used to interpret this result as normal/abnormal . HGB (test code = 9.7 g/dL 11.6-15.0 L 718-7) HCT (test code = 30.7 % 35.7-45.2 L 4544-3) MCV (test code = 72.6 fL 80.6-95.5 L 787-2) MCH (test code = 22.9 pg 25.9-32.8 L 785-6) MCHC (test code = 31.6 g/dL 31.6-35.1 786-4) RDW-SD (test code = 45.8 fL 39.0-49.9 73689-4) RDW-CV (test code = 18.3 % 12.0-15.5 H 788-0) PLT (test code = See_Comment [Automated 777-3) message] The sy stem which generated this result transmitted reference range : 166 - 358 10*3/ ?L. The reference r cali was not used to interpret this result as normal/abnormal . MPV (test code = 10.7 fL 9.5-12.9 14623-6) NRBC/100 WBC (test See_Comment [Automat ed code = 6051892854) message] The system which generated this result transmitted reference range : 0.0 - 10.0 /100 WBCs. The refer ence range was not u sed to interpret th is result as normal/abnormal . NRBC x10^3 (test code See_Comment [Auto mated = 6597738313) message] The s ystem which generated this result transmitted reference range : 10*3/?L. The reference range was not used to interpret this result as normal/abnormal . GRAN MAT (NEUT) % 75.3 % (test code = 770-8) IMM GRAN % (test code 2.70 % = 9167566808) LYMPH % (test code = 11.3 % 736-9) MONO % (test code = 10.5 % 5905-5) EOS % (test code = 0.1 % 713-8) BASO % (test code = 0.1 % 706-2) GRAN MAT x10^3(ANC) 6.66 10*3/uL 1.88-7.09 (test code = 2645247846) IMM GRAN x10^3 (test 0.24 10*3/uL 0.00-0.06 H code = 6472667274) LYMPH x10^3 (test code 1.00 10*3/uL 1.32-3.29 L = 731-0) MONO x10^3 (test code 0.93 10*3/uL 0.33-0.92 H = 742-7) EOS x10^3 (test code = <0.03 0.03-0.39 L 711-2) BASO x10^3 (test code <0.03 0.01-0.07 = 704-7) BASO STIPPLING (test Present A code = 703-9) Lab Interpretation Abnormal (test code = 30383-2) [facility] CenterUric Acid Kdzhj0849-72-63 00:41:38 Test Item Value Reference Range Interpretation Comments URIC ACID (test code = 7206308434) 3.1 mg/dL 2.9-6.0 Lab Interpretation (test code = Normal 87751-2) [facility] Irqyqvauvn8286-47-42 00:41:37 Test Item Value Reference Range Interpretation Comments CREATININE (test code = 0.40 mg/dL 0.50-1.04 L 3902050292) eGFR (test code = mL/min/1.73m2 2439794088) BING (test code = BING) Association of Glomerular Filtration Rate (GFR) and Staging of Kidney Disease* + --+ --+ ------+| GFR (mL/min/1.73 m2) ?| With Kidney Damage ?| ?Without Kidney Damage+ --------+ --------+ +| ?>90 ?| ?Stage one ?| ? Normal ?+ ---+ ---+ -------+| ?60-89 ?| ?Stage two ?| ? Decreased GFR ? + --+ --+ ------+| ?30-59 ?| ?Stage three ?| ? Stage three ? + --+ --+ ------+| ?15-29 ?| ?Stage four ? | ? Stage four ?+ ---+ ---+ -------+| ?<15 (or dialysis) ? ?| ?Stage five ? | ? Stage five ?+ ---+ ---+ -------+ *Each stage assumes the associated GFR level has been in effect for at least three months. ?Stages 1 to 5, with or without kidney disease, indicate chronic kidney disease. Notes: Determination of stages one and two (with eGFR >59mL/min/1.73 m2) requires estimation of kidney damage for at least three months as defined by structural or functional abnormalities of the kidney, manifested by either:Pathological abnormalities or Markers of kidney damage (including abnormalities in the composition of the blood or urine or abnormalities in imaging tests). Lab Interpretation Abnormal (test code = 13803-5) [facility] CenterSGOT (Asparate Amino Transfer)2021-04-17 00:41:37 Test Item Value Reference Range Interpretation Comments AST(SGOT) (test code = 2690346799) 18 U/L 13-40 Lab Interpretation (test code = Normal 18584-7) [facility] CenterAlanine Amino Transferase (SGPT)2021-04-17 00:41:37 Test Item Value Reference Range Interpretation Comments ALTv (test code = 1742-6) 11 U/L 5-35 Lab Interpretation (test code = Normal 04955-0) [facility] CenterLactate Tpejannndcshf4036-87-29 00:41:37 Test Item Value Reference Range Interpretation Comments LDH (test code = 8514203400) 771 U/L 300-600 H Lab Interpretation (test code = Abnormal 37252-2) [facility] CenterUrinalysis2021-08-01 00:34:38 Test Item Value Reference Range Interpretation Comments APPEARANCE (test code = Hazy Clear A 5936318754) COLOR (test code = Yellow Yellow 2694194301) PH (test code = 4.8-8.0 6626122058) SP GRAVITY (test code = 1.003-1.030 7419834847) GLU U QUAL (test code = 500 mg/dL Normal A 9130991739) BLOOD (test code = 3+ Negative A 8834357143) KETONES (test code = Negative Negative 5820754204) PROTEIN (test code = 100 mg/dL Negative A 2887-8) UROBILIN (test code = Normal Normal 4726866827) BILIRUBIN (test code = Negative Negative 1927384326) NITRITE (test code = Negative Negative 7402401744) LEUK SHANKAR (test code = 25/uL Negative A 5481862471) RBC/HPF (test code = >182 See_Comment H [Autom ated message] 3108453741) The system [employer] generated this result transmit roxann reference range : 0 - 3 HPF. The refe rence range was not u sed to interpret th is result as normal/abnormal . WBC/HPF (test code = See_Comment H [Autom ated message] 7837274585) The system [employer] generated this result transmit roxann reference range : 0 - 5 HPF. The refe rence range was not u sed to interpret th is result as normal/abnormal . BACTERIA (test code = Few Negative A 0193280204) MUCOUS (test code = Moderate Negative LPF A 3839409419) SQ EPITH (test code = <1 See_Comment [Auto mated message] 8664997922) The system [employer] generated this result transmit roxann reference range : <=2 HPF. The refere nce range was not u sed to interpret th is result as normal/abnormal . Lab Interpretation (test Abnormal code = 29238-1) [facility] CenterProtein CREAT Ratio Urine Joujbm4985-16-53 00:32:37 Test Item Value Reference Range Interpretation Comments T. PROT U (test code = 2888-6) 124 mg/dL CREAT U (test code = 2195385989) 39.0 mg/dL Protein/Creatinine Ratio Urine 0.0-2.0 H (test code = 8037904218) Lab Interpretation (test code = Abnormal 07961-2) [facility] CenterGROUP B STREPTOCOCCUS BY [id number] 15:59:10 Test Item Value Reference Range Interpretation Comments Group B Streptococcus by PCR (test Negative Negative code = 69381-5) Lab Interpretation (test code = Normal 46882-0) [facility] CenterGROUP B STREPTOCOCCUS BY FVG2606-08-30 15:56:09 Test Item Value Reference Range Interpretation Comments Group B Streptococcus by PCR (test Negative Negative code = 53286-8) Lab Interpretation (test code = Normal 78281-4) [facility] CenterType and Screen - ONCE Ztekawe2191-35-69 05:05:20 Test Item Value Reference Range Interpretation Comments ABO & RH (test code O POSITIVE Performe d at [facility] = 20) Laboratory Serv [facility] Blood Bank[address] [place] [address] s [address]Voiv Free: [phone] A No. [id number] IAT (test code = Negative Performed a t [facility] 1185) Laboratory Serv [facility] Blood [facility] [place] [address] s [address]Bveq Free: [phone] A No. [id number] [facility] CenterLAB ONLY COVID ZHWKTXUEALZNUU4690-87-73 16:54:54COVID DMT InterpretationInterpretation/Recommendations:Molecular NAAT Tests for Active Infection with the SARS-CoV-2 Virus:The patient has currently tested negative for the SARS-CoV-2 virus that causesCOVID-19 illness. This most likely indicates that the patient does not have an active infection withthe SARS-CoV-2 virus. However, infection is not completely ruled out as the false negative rate for molecular NAAT testing using a nasopharyngeal sample can be up to 30%, mostly dependent on the timingof sample collection in relation to illness onset and any deficiencies in sampling techniques. If the patient has symptoms concerning for COVID-19 illness, a repeat NAAT test (PCR, Rapid ID Now, etc.) should be performed, at which time the SARS-CoV-2 virus - if present - may have reached a detectable viral load (usually peaking by the end of the first week of symptoms). Tests for IgM and/or IgG Antibodies to the SARS-CoV-2 Virus:Testing for IgM and IgG antibodies approximately 3 weeks after illness o nset will likely indicate if the patient has produced antibodies to the SARS-CoV-2 virus. However, some patients may take longer to develop detectable antibodies, while others infected with SARS-CoV-2 may never develop antibodies, particularly those who have had mild or asymptomatic illness. Of note, if the patient has been vaccinated earlier than 1-2 weeks prior to antibody testing, any positive SARS-CoV-2 IgG antibody result is likely due to vaccination. The specific duration and strength of immunity from SARS-CoV-2 IgG antibodies is highly variable between individuals and is dependent on a variety of factors, including infection vs. vaccination response, initial infection severity, the strengthof the patient's own immune system, and the variants to which the patient has been exposed. ? ------- Interpretation Result Comments:These interpretation comments are based upon all COVID-19 testing the patient has had at [facility], includingmolecular NAAT testing (more commonly known as PCR testing and Rapid ID Now testing) and antibody testing. It does not take into account any testing that a patient has had outside of the [facility] medical record. [facility] LABORATORY SERVICESCOVID HiqhdfcAEIL-XrI-5 Rapid ID NOW (no units) ? ? Date ? Value ? 04/14/2021 ? Not Detected ? CoV-2 IgG (no units) ? ? Date ? Value ? 09/21/2020 ? Negative ? ? ? [facility] LABORATORY SERVICESUnCorp[facility] AreaGALV ONLY - SYPHILIS IGG/XFG1220-02-79 14:48:49 Test Item Value Reference Range Interpretation Comments Syphilis IgG/IgM (test Non-reactive Non-reactive code = 38278-2) BING (test code = BING) Non-reactive - No serologic evidence of T. pallidum infection. Cannot exclude incubating or early syphilis. Submit a second specimen in 2-4 weeks if syphilis is clinically suspected. Equivocal - Further testing to follow. Reactive - Further testing to follow. Lab Interpretation (test Normal code = 39368-1) [facility] OR AMANDO ONLY - [id number] 09:49:19 Test Item Value Reference Range Interpretation Comments RPR (Qualitative) (test code = Nonreactive Nonreactive 95184-8) Lab Interpretation (test code = Normal 69267-9) [facility] CenterPROTEIN CREAT RATIO URINE HKXRZP2011-55-01 08:00:31 Test Item Value Reference Range Interpretation Comments T. PROT U (test code = 2888-6) 23 mg/dL CREAT U (test code = 0882870637) 23.6 mg/dL Protein/Creatinine Ratio Urine 0.0-2.0 (test code = 2957833097) [facility] CenterPOCT GLUCOSE (AUTOMATED)2021-04-15 06:12:41 Test Item Value Reference Range Interpretation Comments POCT GLU (test code = 9355636973) 171 mg/dL 70-110 H Lab Interpretation (test code = Abnormal 57320-7) [facility] CenterHEPATITIS B SURFACE [id number] 05:19:15 Test Item Value Reference Range Interpretation Comments HBsAg Semi-Quantitative (test code = Negative Negative 5195-3) [facility] CenterHIV 1/2 AG-AB WITH [id number] 23:13:19 Test Item Value Reference Range Interpretation Comments HIV Negative Negative Semi-quantitative (test code = 49192-8) BING (test code = Non-reactive for HIV-1 BING) antigen and HIV-1/HIV-2 antibodies. ?No laboratory evidence of HIV infection. ?Repeat in 2-4 weeks if acute HIV infection is suspected. [facility] CenterType and Screen - ONCE Usvhgpx2789-22-12 22:56:00 Test Item Value Reference Range Interpretation Comments ABO & RH (test code O Positive Performe d at [facility] = 20) Laboratory Serv [facility] Blood [address] [place] [address]Wpry Free: [phone] A No. [id number] IAT (test code = Negative Performed a t [facility] 1185) Laboratory Serv [facility] Blood Bank[address] [place] [address]Cthm Free: [phone] A No. [id number] [facility] CenterCOVID-19 (ID NOW RAPID TESTING)2021-04-14 22:33:24 Test Item Value Reference Range Interpretation Comments SARS-CoV-2 Rapid ID NOW Not Detected Not Detected (test code = 11671-6) BING (test code = BING) ID NOW COVID-19 Assay is an isothermal nucleic acid amplification test intended for the qualitative detection of nucleic acid from SARS-CoV-2 viral RNA in nasopharyngeal ([employer]IEF [employer]INEER) specimens. It is used under Emergency Use Authorization (EUA) by FDA. The limit of detection (LOD) of the assay is 125 Genome Equivalents/mL. A positive result is indicative of the presence of SARS-CoV-2 RNA. ?Clinical correlation with patient history and other diagnostic information is necessary to determine patient infection status. A negative (Not Detected) result does not preclude SARS-CoV-2 infection. In patients with clinical symptoms and other tests that are consistent with SARS-CoV-2 infection, negative results should be treated as presumptive negative and a new specimen should be tested with alternative PCR molecular test. Invalid: Please collect a new specimen for repeat patient testing if clinically indicated. Lab Interpretation Normal (test code = 46083-5) [facility] 22:32:23 Test Item Value Reference Range Interpretation Comments LDH (test code = 8259964599) 815 U/L 300-600 H Lab Interpretation (test code = Abnormal 43318-0) [facility] CenterU[facility] Acid [id number] 22:32:02 Test Item Value Reference Range Interpretation Comments URIC ACID (test code = 2668750307) 3.9 mg/dL 2.9-6.0 Lab Interpretation (test code = Normal 12119-3) [facility] (Asparate Amino [facility])2021-04-14 22:32:02 Test Item Value Reference Range Interpretation Comments AST(SGOT) (test code = 2141300677) 20 U/L 13-40 Lab Interpretation (test code = Normal 89248-5) [facility] CenterAlanine Amino Transferase (SGPT)2021-04-14 22:32:02 Test Item Value Reference Range Interpretation Comments ALTv (test code = 1742-6) 6 U/L 5-35 Lab Interpretation (test code = Normal 70646-0) [facility] CenterCreatinine [id number] 22:31:42 Test Item Value Reference Range Interpretation Comments CREATININE (test code 0.51 mg/dL 0.50-1.04 = 5967588217) eGFR (test code = mL/min/1.73m2 3007950544) BING (test code = BING) Association of Glomerular Filtration Rate (GFR) and Staging of Kidney Disease* + + +- +| GFR (mL/min/1.73 m2) ?| With Kidney Damage ?| ?Without Kidney Damage+ ------+ ----+ ------+| ?>90 ?| ?Stage one ?| ? Normal ?+ -+ + -+| ?60-89 ?| ?Stage two ?| ? Decreased GFR ? + + +- +| ?30-59 ?| ?Stage three ?| ? Stage three ? + + +- +| ?15-29 ?| ?Stage four ? | ? Stage four ?+ -+ + -+| ?<15 (or dialysis) ? ?| ?Stage five ? | ? Stage five ?+ -+ + -+ *Each stage assumes the associated GFR level has been in effect for at least three months. ?Stages 1 to 5, with or without kidney disease, indicate chronic kidney disease. Notes: Determination of stages one and two (with eGFR >59mL/min/1.73 m2) requires estimation of kidney damage for at least three months as defined by structural or functional abnormalities of the kidney, manifested by either:Pathological abnormalities or Markers of kidney damage (including abnormalities in the composition of the blood or urine or abnormalities in imaging tests). [facility] [id number] 22:27:38 Test Item Value Reference Range Interpretation Comments APPEARANCE (test code = Clear Clear 3235805452) COLOR (test code = Yellow Yellow 3391919712) PH (test code = 4.8-8.0 6031412172) SP GRAVITY (test code = 1.003-1.030 2833301355) GLU U QUAL (test code = Normal Normal 2436813729) BLOOD (test code = Negative Negative 0713661830) KETONES (test code = 5 mg/dL Negative A 9855616985) PROTEIN (test code = 500 mg/dL Negative A 2887-8) UROBILIN (test code = 2.0 mg/dL Normal A 1359265556) BILIRUBIN (test code = Negative Negative 9907969213) NITRITE (test code = Negative Negative 7214744716) LEUK SHANKAR (test code = Negative Negative 5890679978) RBC/HPF (test code = See_Comment H [Autom ated message] 6354218213) The system [employer] generated this result transmit roxann reference range : 0 - 3 HPF. The refe rence range was not u sed to interpret th is result as normal/abnormal . WBC/HPF (test code = See_Comment [Autom ated message] 7689865591) The system [employer] generated this result transmit roxann reference range : 0 - 5 HPF. The refe rence range was not u sed to interpret th is result as normal/abnormal . BACTERIA (test code = Negative Negative 0599859861) MUCOUS (test code = Moderate Negative LPF A 1470897775) SQ EPITH (test code = HPF 6325947604) Lab Interpretation (test Abnormal code = 98823-7) [facility] with [id number] 22:23:01 Test Item Value Reference Range Interpretation Comments WBC (test code = See_Comment [Automated 9590-2) message] The sy stem which generated this result transmitted reference range : 4.30 - 11.10 10*3/?L. The reference range was not used to interpret this result as normal/abnormal . RBC (test code = See_Comment [Automated 789-8) message] The sy stem which generated this result transmitted reference range : 3.93 - 5.25 10*6/?L. The reference range was not used to interpret this result as normal/abnormal . HGB (test code = 10.0 g/dL 11.6-15.0 L 718-7) HCT (test code = 32.1 % 35.7-45.2 L 4544-3) MCV (test code = 73.3 fL 80.6-95.5 L 787-2) MCH (test code = 22.8 pg 25.9-32.8 L 785-6) MCHC (test code = 31.2 g/dL 31.6-35.1 L 786-4) RDW-SD (test code = 43.8 fL 39.0-49.9 22931-0) RDW-CV (test code = 17.3 % 12.0-15.5 H 788-0) PLT (test code = See_Comment L [Automated 777-3) message] The sy stem which generated this result transmitted reference range : 166 - 358 10*3/ ?L. The reference r cali was not used to interpret this result as normal/abnormal . MPV (test code = 11.6 fL 9.5-12.9 39406-2) IPF % (test code = 6.6 % 1.3-7.7 Platelet count 8268683725) measured by fluorescence method. NRBC/100 WBC (test See_Comment [Automat ed code = 4962505861) message] The system which generated this result transmitted reference range : 0.0 - 10.0 /100 WBCs. The refer ence range was not u sed to interpret th is result as normal/abnormal . NRBC x10^3 (test code See_Comment [Auto mated = 9000075512) message] The s ystem which generated this result transmitted reference range : 10*3/?L. The reference range was not used to interpret this result as normal/abnormal . GRAN MAT (NEUT) % 63.8 % (test code = 770-8) IMM GRAN % (test code 0.60 % = 6409806757) LYMPH % (test code = 25.4 % 736-9) MONO % (test code = 9.2 % 5905-5) EOS % (test code = 0.5 % 713-8) BASO % (test code = 0.5 % 706-2) GRAN MAT x10^3(ANC) 4.25 10*3/uL 1.88-7.09 (test code = 7894861611) IMM GRAN x10^3 (test 0.04 10*3/uL 0.00-0.06 code = 5496583117) LYMPH x10^3 (test code 1.69 10*3/uL 1.32-3.29 = 731-0) MONO x10^3 (test code 0.61 10*3/uL 0.33-0.92 = 742-7) EOS x10^3 (test code = 0.03 10*3/uL 0.03-0.39 711-2) BASO x10^3 (test code 0.03 10*3/uL 0.01-0.07 = 704-7) Lab Interpretation Abnormal (test code = 01289-9) [facility] URINALYSIS W SPECIFIC [id number] 18:27:00 Test Item Value Reference Range Interpretation Comments POCT U SP GRAV (test code = 3255) . 1.005-1.025 POCT PH U (test code = 3254) . 5-8 POCT U LEUK EST (test code = 3263) . Negative - Negative POCT U NIT (test code = 3262) . Negative - Negative POCT U PROT (test code = 3259) 2+ Negative - Negative POCT U GLU (test code = 3256) Neg Negative - Negative POCT U KETONE (test code = 3258) . Negative - Negative POCT U UROBILI (test code = 3260) . 0.2-1 POCT U BILI (test code = 3261) . Negative - Negative POCT U BLD (test code = 3257) . Negative - Negative POCT U COLOR (test code = 3266) POCT U APPEAR (test code = 3267) [facility] ONLY - SYPHILIS [id number] 13:52:42 Test Item Value Reference Range Interpretation Comments Syphilis IgG/IgM (test Non-reactive Non-reactive code = 96519-4) BING (test code = BING) Non-reactive - No serologic evidence of T. pallidum infection. Cannot exclude incubating or early syphilis. Submit a second specimen in 2-4 weeks if syphilis is clinically suspected. Equivocal - Further testing to follow. Reactive - Further testing to follow. Lab Interpretation (test Normal code = 51391-7) [facility] ONLY - SYPHILIS [id number] 13:52:42 Test Item Value Reference Range Interpretation Comments Syphilis IgG/IgM (test Non-reactive Non-reactive code = 72848-3) BING (test code = BING) Non-reactive - No serologic evidence of T. pallidum infection. Cannot exclude incubating or early syphilis. Submit a second specimen in 2-4 weeks if syphilis is clinically suspected. Equivocal - Further testing to follow. Reactive - Further testing to follow. Lab Interpretation (test Normal code = 88413-4) [facility] 1/2 AG-AB WITH [id number] 05:33:57 Test Item Value Reference Range Interpretation Comments HIV Negative Negative Semi-quantitative (test code = 25048-0) BING (test code = Non-reactive for HIV-1 BING) antigen and HIV-1/HIV-2 antibodies. ?No laboratory evidence of HIV infection. ?Repeat in 2-4 weeks if acute HIV infection is suspected. [facility] 1/2 AG-AB WITH [id number] 05:33:57 Test Item Value Reference Range Interpretation Comments HIV Negative Negative Semi-quantitative (test code = 64488-5) BING (test code = Non-reactive for HIV-1 BING) antigen and HIV-1/HIV-2 antibodies. ?No laboratory evidence of HIV infection. ?Repeat in 2-4 weeks if acute HIV infection is suspected. [facility] WITH [id number] 03:56:33 Test Item Value Reference Range Interpretation Comments WBC (test code = See_Comment [Automated 2790-2) message] The sy stem which generated this result transmitted reference range : 4.30 - 11.10 10*3/?L. The reference range was not used to interpret this result as normal/abnormal . RBC (test code = See_Comment [Automated 893-8) message] The sy stem which generated this result transmitted reference range : 3.93 - 5.25 10*6/?L. The reference range was not used to interpret this result as normal/abnormal . HGB (test code = 10.4 g/dL 11.6-15.0 L 718-7) HCT (test code = 33.5 % 35.7-45.2 L 4544-3) MCV (test code = 75.3 fL 80.6-95.5 L 787-2) MCH (test code = 23.4 pg 25.9-32.8 L 785-6) MCHC (test code = 31.0 g/dL 31.6-35.1 L 786-4) RDW-SD (test code = 41.6 fL 39.0-49.9 60541-9) RDW-CV (test code = 15.2 % 12.0-15.5 788-0) PLT (test code = See_Comment [Automated 777-3) message] The sy stem which generated this result transmitted reference range : 166 - 358 10*3/ ?L. The reference r cali was not used to interpret this result as normal/abnormal . MPV (test code = 9.9 fL 9.5-12.9 07208-0) NRBC/100 WBC (test See_Comment [Automat ed code = 3268550374) message] The system which generated this result transmitted reference range : 0.0 - 10.0 /100 WBCs. The refer ence range was not u sed to interpret th is result as normal/abnormal . NRBC x10^3 (test code <0.01 See_Comment [Auto mated = 7502330993) message] The s ystem which generated this result transmitted reference range : 10*3/?L. The reference range was not used to interpret this result as normal/abnormal . GRAN MAT (NEUT) % 55.7 % (test code = 770-8) IMM GRAN % (test code 0.50 % = 2408231356) LYMPH % (test code = 33.6 % 736-9) MONO % (test code = 9.0 % 5905-5) EOS % (test code = 0.9 % 713-8) BASO % (test code = 0.3 % 706-2) GRAN MAT x10^3(ANC) 3.23 10*3/uL 1.88-7.09 (test code = 1222277719) IMM GRAN x10^3 (test 0.03 10*3/uL 0.00-0.06 code = 9991479490) LYMPH x10^3 (test code 1.95 10*3/uL 1.32-3.29 = 731-0) MONO x10^3 (test code 0.52 10*3/uL 0.33-0.92 = 742-7) EOS x10^3 (test code = 0.05 10*3/uL 0.03-0.39 711-2) BASO x10^3 (test code <0.03 0.01-0.07 = 704-7) Lab Interpretation Abnormal (test code = 55710-2) [facility] WITH [id number] 03:56:33 Test Item Value Reference Range Interpretation Comments WBC (test code = See_Comment [Automated 6690-2) message] The sy stem which generated this result transmitted reference range : 4.30 - 11.10 10*3/?L. The reference range was not used to interpret this result as normal/abnormal . RBC (test code = See_Comment [Automated 789-8) message] The sy stem which generated this result transmitted reference range : 3.93 - 5.25 10*6/?L. The reference range was not used to interpret this result as normal/abnormal . HGB (test code = 10.4 g/dL 11.6-15.0 L 718-7) HCT (test code = 33.5 % 35.7-45.2 L 4544-3) MCV (test code = 75.3 fL 80.6-95.5 L 787-2) MCH (test code = 23.4 pg 25.9-32.8 L 785-6) MCHC (test code = 31.0 g/dL 31.6-35.1 L 786-4) RDW-SD (test code = 41.6 fL 39.0-49.9 99273-6) RDW-CV (test code = 15.2 % 12.0-15.5 788-0) PLT (test code = See_Comment [Automated 777-3) message] The sy stem which generated this result transmitted reference range : 166 - 358 10*3/ ?L. The reference r cali was not used to interpret this result as normal/abnormal . MPV (test code = 9.9 fL 9.5-12.9 45734-8) NRBC/100 WBC (test See_Comment [Automat ed code = 7459818208) message] The system which generated this result transmitted reference range : 0.0 - 10.0 /100 WBCs. The refer ence range was not u sed to interpret th is result as normal/abnormal . NRBC x10^3 (test code <0.01 See_Comment [Auto mated = 6536658219) message] The s ystem which generated this result transmitted reference range : 10*3/?L. The reference range was not used to interpret this result as normal/abnormal . GRAN MAT (NEUT) % 55.7 % (test code = 770-8) IMM GRAN % (test code 0.50 % = 8293659638) LYMPH % (test code = 33.6 % 736-9) MONO % (test code = 9.0 % 5905-5) EOS % (test code = 0.9 % 713-8) BASO % (test code = 0.3 % 706-2) GRAN MAT x10^3(ANC) 3.23 10*3/uL 1.88-7.09 (test code = 3727688932) IMM GRAN x10^3 (test 0.03 10*3/uL 0.00-0.06 code = 8805585659) LYMPH x10^3 (test code 1.95 10*3/uL 1.32-3.29 = 731-0) MONO x10^3 (test code 0.52 10*3/uL 0.33-0.92 = 742-7) EOS x10^3 (test code = 0.05 10*3/uL 0.03-0.39 711-2) BASO x10^3 (test code <0.03 0.01-0.07 = 704-7) Lab Interpretation Abnormal (test code = 08851-8) [facility] URINALYSIS W SPECIFIC [id number] 19:13:00 Test Item Value Reference Range Interpretation Comments POCT U SP GRAV (test code = 3255) . 1.005-1.025 POCT PH U (test code = 3254) . 5-8 POCT U LEUK EST (test code = 3263) . Negative - Negative POCT U NIT (test code = 3262) . Negative - Negative POCT U PROT (test code = 3259) Trace Negative - Negative POCT U GLU (test code = 3256) Neg Negative - Negative POCT U KETONE (test code = 3258) . Negative - Negative POCT U UROBILI (test code = 3260) . 0.2-1 POCT U BILI (test code = 3261) . Negative - Negative POCT U BLD (test code = 3257) . Negative - Negative POCT U COLOR (test code = 3266) . POCT U APPEAR (test code = 3267) [facility] [id number] 16:06:00 Test Item Value Reference Range Interpretation Comments POCT U SP GRAV (test code = . 1.005-1.025 3255) POCT PH U (test code = 3254) . 5-8 POCT U LEUK EST (test code = . Negative - Negative 3263) POCT U NIT (test code = 3262) . Negative - Negative POCT U PROT (test code = 3259) 1+ Negative - Negative POCT U GLU (test code = 3256) negative Negative - Negative POCT U KETONE (test code = 3258) . Negative - Negative POCT U UROBILI (test code = . 0.2-1 3260) POCT U BILI (test code = 3261) . Negative - Negative POCT U BLD (test code = 3257) . Negative - Negative POCT U COLOR (test code = 3266) POCT U APPEAR (test code = 3267) [facility] [id number] 16:33:00 Test Item Value Reference Range Interpretation Comments POCT U SP GRAV (test code = 3255) . 1.005-1.025 POCT PH U (test code = 3254) . 5-8 POCT U LEUK EST (test code = 3263) . Negative - Negative POCT U NIT (test code = 3262) . Negative - Negative POCT U PROT (test code = 3259) Trace Negative - Negative POCT U GLU (test code = 3256) 1+ Negative - Negative POCT U KETONE (test code = 3258) . Negative - Negative POCT U UROBILI (test code = 3260) . 0.2-1 POCT U BILI (test code = 3261) . Negative - Negative POCT U BLD (test code = 3257) . Negative - Negative POCT U COLOR (test code = 3266) POCT U APPEAR (test code = 3267) [facility] CenterGC & CHLAMYDIA AMPLIFIED [id number] 19:34:00 Test Item Value Reference Range Interpretation Comments C. trachomatis Nucleic Negative Negative Acid (test code = 19841-6) N. gonorrhoeae Nucleic Negative Negative Acid (test code = 82049-5) BING (test code = BING) Reliable results are dependent on adequate specimen collection. ? A positive result obtained from a patient after therapeutic treatment cannot be interpreted as indicating the presence of viable organisms. ?For patients on whom a false positive result may have adverse psychosocial impact, retesting is advised. Indeterminate: Unable to generate a valid test result on this specimen. ?Please submit a new specimen for repeat testing if clinically indicated. Chlamydia trachomatis/Neisseria gonorrhoeae nucleic acid amplification testing (NAAT) has not been validated for medico-legal specimens (sexual abuse in yvonne-pubertal and pre-pubertal children, sexual assault, and legal cases). ?Culture for Chlamydia trachomatis and/or Neisseria gonorrhoeae from clinically appropriate sites is the method of choice in these cases. ? Results from this testing should be interpreted in conjunction with other laboratory and clinical data available to the clinician.For females in general, a urine specimen is a second-line option because it is considered less sensitive than a cervical swab for Chlamydia trachomatis and/or Neisseria gonorrhoeae NAAT. Lab Interpretation Normal (test code = 91459-6) [facility] CenterRUBELLA SCREEN (DARYN) [id number] 17:47:00 Test Item Value Reference Range Interpretation Comments Rubella screen IgG Positive Negative (test code = 7387342618) BING (test code = BING) Positive - Indicates the patient was exposed to Rubella through infection or vaccination.Negative - Indicates the patient could be susceptible to Rubella infection.Equivocal - A second specimen should be sent. [facility]ODY [id number] 17:47:00 Test Item Value Reference Range Interpretation Comments VZV IgG antibody Positive Negative (test code = 30569-1) BING (test code = BING) Positive - Indicates the patient was exposed to VZV through infection or vaccination.Negative - Indicates the patient could be susceptible to VZV infection.Equivocal - A second specimen should be sent for testing. [facility] - SYPHILIS [id number] 15:42:00 Test Item Value Reference Range Interpretation Comments Syphilis IgG/IgM (test Non-reactive Non-reactive code = 38077-9) BING (test code = BING) Non-reactive - No serologic evidence of T. pallidum infection. Cannot exclude incubating or early syphilis. Submit a second specimen in 2-4 weeks if syphilis is clinically suspected. Equivocal - Further testing to follow. Reactive - Further testing to follow. Lab Interpretation (test Normal code = 88211-7) [facility] CenterHIV [facility]2 AG-AB WITH [id number] 09:58:00 Test Item Value Reference Range Interpretation Comments HIV Negative Negative Semi-quantitative (test code = 88665-6) BING (test code = Non-reactive for HIV-1 BING) antigen and HIV-1/HIV-2 antibodies. ?No laboratory evidence of HIV infection. ?Repeat in 2-4 weeks if acute HIV infection is suspected. [facility] CenterSARS-COV-2 [id number] 07:21:00 Test Item Value Reference Range Interpretation Comments CoV-2 IgG (test code Negative Negative Negativ e result = 88244-1) does not rule o ut acute SARS-CoV- 2 infection. Clinical correlation as well as molecul ar diagnostic test are recommended to rule out acu te infection if clinically indicated. BING (test code = BING) This test has been approved by FDA for emergency use. Lab Interpretation Normal (test code = 65818-2) [facility] CenterHEPATITIS B SURFACE [id number] 06:50:00 Test Item Value Reference Range Interpretation Comments HBsAg Semi-Quantitative (test code = Negative Negative 5195-3) [facility] CenterPRENATAL WORKUP, BLOOD [id number] 05:04:30 Test Item Value Reference Range Interpretation Comments ABO & RH (test code O POSITIVE Performe d at [facility] = 20) Laboratory Serv [facility] Blood [facility] s [address]Eenj Free: [phone] A No. [id number] IAT (test code = Negative Performed a t [facility] 1185) Laboratory [facility] Blood [facility] s [address]Oypf Free: [phone] A No. [id number] [facility] CenterGLUCOSE 1 HOUR POST [id number] 04:33:00 Test Item Value Reference Range Interpretation Comments GLUC 1 HR (test code = 2336829870) 165 mg/dL 120-170 Lab Interpretation (test code = Normal 70440-9) [facility] WITH [id number] 04:06:00 Test Item Value Reference Range Interpretation Comments WBC (test code = See_Comment [Automated 6690-2) message] The sy stem which generated this result transmitted reference range : 4.30 - 11.10 10*3/?L. The reference range was not used to interpret this result as normal/abnormal . RBC (test code = See_Comment H [Automated 789-8) message] The sy stem which generated this result transmitted reference range : 3.93 - 5.25 10*6/?L. The reference range was not used to interpret this result as normal/abnormal . HGB (test code = 12.9 g/dL 11.6-15 718-7) HCT (test code = 41.2 % 35.7-45.2 4544-3) MCV (test code = 73.8 fL 80.6-95.5 L 787-2) MCH (test code = 23.1 pg 25.9-32.8 L 785-6) MCHC (test code = 31.3 g/dL 31.6-35.1 L 786-4) RDW-SD (test code = 41.4 fL 39-49.9 16646-6) RDW-CV (test code = 15.9 % 12-15.5 H 788-0) PLT (test code = See_Comment [Automated 777-3) message] The sy stem which generated this result transmitted reference range : 166 - 358 10*3/ ?L. The reference r cali was not used to interpret this result as normal/abnormal . MPV (test code = 9.8 fL 9.5-12.9 95518-4) NRBC/100 WBC (test See_Comment [Automat ed code = 6224118490) message] The system which generated this result transmitted reference range : 0.0 - 10.0 /100 WBCs. The refer ence range was not u sed to interpret th is result as normal/abnormal . NRBC x10^3 (test code <0.01 See_Comment [Auto mated = 6338912537) message] The s ystem which generated this result transmitted reference range : 10*3/?L. The reference range was not used to interpret this result as normal/abnormal . GRAN MAT (NEUT) % 45.6 % (test code = 770-8) IMM GRAN % (test code 0.20 % = 3847199049) LYMPH % (test code = 46.8 % 736-9) MONO % (test code = 5.8 % 5905-5) EOS % (test code = 0.8 % 713-8) BASO % (test code = 0.8 % 706-2) GRAN MAT x10^3(ANC) 2.35 10*3/uL 1.88-7.09 (test code = 5781494955) IMM GRAN x10^3 (test <0.03 0-0.06 code = 7430460194) LYMPH x10^3 (test code 2.41 10*3/uL 1.32-3.29 = 731-0) MONO x10^3 (test code 0.30 10*3/uL 0.33-0.92 L = 742-7) EOS x10^3 (test code = 0.04 10*3/uL 0.03-0.39 711-2) BASO x10^3 (test code 0.04 10*3/uL 0.01-0.07 = 704-7) Lab Interpretation Abnormal (test code = 19874-9) [facility] URINALYSIS W/O SPECIFIC [id number] 19:24:00 Test Item Value Reference Range Interpretation Comments POCT PH U (test code = 3254) 7 mg/dl 5-8 POCT U LEUK EST (test code = 1+ Negative - Negative 3263) POCT U NIT (test code = 3262) Neg Negative - Negative POCT U PROT (test code = 3259) 1+ Negative - Negative POCT U GLU (test code = 3256) 1+ Negative - Negative POCT U KETONE (test code = 3258) Small Negative - Negative POCT U BLD (test code = 3257) Trace Negative - Negative [facility] [id number] 19:23:00 Test Item Value Reference Range Interpretation Comments POCT PREG (test code = 1605) Positive On board controls acceptable with C Yes Line (test code = 3574) POCT PREG LOT # (test code = 3575) POCT PREG TEST DATE (test code = 3576) [facility] CenterPOSC [id number] 20:21:00 Test Item Value Reference Range Interpretation Comments POCT PREG (test code = 1605) Negative On board controls acceptable with C Yes Line (test code = 3574) POCT PREG LOT # (test code = 3575) POCT PREG TEST DATE (test code = 3576) [facility]POS[facility] [id number] 20:54:00 Test Item Value Reference Range Interpretation Comments POCT PREG (test code = 1605) Negative On board controls acceptable with C Yes Line (test code = 3574) POCT PREG LOT # (test code = 3575) POCT PREG TEST DATE (test code = 3576) [facility]POS[facility] [id number] 20:54:00 Test Item Value Reference Range Interpretation Comments POCT PREG (test code = 1605) Negative On board controls acceptable with C Yes Line (test code = 3574) POCT PREG LOT # (test code = 3575) POCT PREG TEST DATE (test code = 3576) [facility]"
[2022-05-03 17:47] LABS: Urine Blood Negative (Negative); Urine Glucose Negative (Negative); Urine Protein 1+ (Negative); Urine Specific Gravity >=1.030 (1.005-1.030)
[2022-05-03 17:59] LABS: Absolute Lymphocytes (CBC) 1.6 K/uL (0.7-4.9); Hematocrit 34.5 % (36.0-45.0); Lymphocytes % 33.9 % (15.3-44.8); MCV 67.4 fL (80-100); MPV 7.3 fL (7.6-11.3); RBC Red Blood Cell Count 5.12 M/uL (3.86-4.86)
[2022-05-03 18:34] LABS: Potassium 3.6 mmol/L (3.5-5.1)
[2022-05-03 18:47] LABS: Urine Specific Gravity/Preg >1.030 (1.005-1.030)
--- NOTE | 2022-05-03 18:59 | RAD REPORT ---
EXAM DESCRIPTION: US - Transvaginal OB - 05/03/2022 6:34 pm CLINICAL HISTORY: ABD CRAMPING, COMPARISON: No relevant comparisons FINDINGS: Normal shaped intrauterine gestational sac is present containing a yolk sac and pole . [place]-rump length and yolk sac measurements yield a 7 week 1 day age. Calculated DANYEL is 12/19/2022 A 2 x 1 centimeter subchorionic hemorrhage is present adjacent to the gestational sac. heart rate is 141 BPM. Urine overall size is normal. Both ovaries are identified and unremarkab le. No blood or fluid in the cul de sac. No adnexal mass. Cervical canal is closed. IMPRESSION: Single 7 week 1 day IUP with heart rate 141 BPM. Small 2 x 1 cm subchorionic hemorrhage.
--- NOTE | 2022-05-03 19:09 | EDPHYS ---
Physician Documentation [facility] Name: Radha Smith Age: 27 yrs Sex: Female : 1995 Arrival Date: 05/03/2022 Time: 17:26 Bed 6 Private MD: ED Physician Sumanth East HPI: 05/03 17:30 This 27 yrs old Black Female presents to ER via EMS with complaints of Abdominal Pain. jl9 Patient reports being 2 months . Patient in police custody and coming from custodial.. 17:30 The patient presents with abdominal pain right lower quadrant, in the left lower jl9 quadrant. Onset: The symptoms/episode began/occurred today. The symptoms do not radiate. Associated signs and symptoms: Pertinent positives: vaginal bleeding, Pertinent negatives:. The symptoms are described as crampy. Modifying factors: The symptoms are alleviated by nothing, the symptoms are aggravated by nothing. Severity of pain: in the emergency department the pain is a 2 / 10. STONEWORKER: 19:13 Verified as6 Historical: - Allergies: 17:34 No Known Allergies; bp - Home Meds: 17:34 None [Active]; bp - PMHx: 17:34 Anemia; PRE-ECLAMPSIA; bp - Immunization history:: Adult Immunizations up to date. - Social history:: Smoking status: unknown. ROS: 19:04 Constitutional: Negative for fever, chills, and weight loss, Eyes: Negative for injury, jl9 pain, redness, and discharge, ENT: Negative for injury, pain, and discharge, Neck: Negative for injury, pain, and swelling, Cardiovascular: Negative for chest pain, palpitations, and edema, Respiratory: Negative for shortness of breath, cough, wheezing, and pleuritic chest pain. 19:04 Back: Negative for injury and pain, : Negative for injury, bleeding, discharge, and swelling, MS/Extremity: Negative for injury and deformity, Skin: Negative for injury, rash, and discoloration, Neuro: Negative for headache, weakness, numbness, tingling, and seizure, Psych: Negative for depression, anxiety, suicide ideation, homicidal ideation, and hallucinations, Allergy/Immunology: Negative for hives, rash, and allergies, Endocrine: Negative for neck swelling, polydipsia, polyuria, polyphagia, and marked weight changes, Hematologic/Lymphatic: Negative for swollen nodes, abnormal bleeding, and unusual bruising. 19:04 Abdomen/GI: Positive for abdominal pain. Exam: 19:04 Constitutional: This is a well developed, well nourished patient who is awake, alert, jl9 and in no acute distress. Head/Face: Normocephalic, atraumatic. Eyes: Pupils equal round and reactive to light, extra-ocular motions intact. Lids and lashes normal. Conjunctiva and sclera are non-icteric and not injected. Cornea within normal limits. Periorbital areas with no swelling, redness, or edema. ENT: Mucous membranes moist. Neck: Trachea midline, no thyromegaly or masses palpated, and no cervical lymphadenopathy. Supple, full range of motion without nuchal rigidity, or vertebral point tenderness. No Meningismus. Chest/axilla: Normal chest wall appearance and motion. Nontender with no deformity. No lesions are appreciated. Cardiovascular: Regular rate and rhythm with a normal S1 and S2. No gallops, murmurs, or rubs. Normal PMI, no JVD. No pulse deficits. Respiratory: Lungs have equal breath sounds bilaterally, clear to auscultation and percussion. No rales, rhonchi or wheezes noted. No increased work of breathing, no retractions or nasal flaring. 19:04 Back: No spinal tenderness. No costovertebral tenderness. Full range of motion. 19:04 Skin: Warm, dry with normal turgor. Normal color with no rashes, no lesions, and no evidence of cellulitis. MS/ Extremity: Pulses equal, no cyanosis. Neurovascular intact. Full, normal range of motion. Neuro: Awake and alert, GCS 15, oriented to person, place, time, and situation. Cranial nerves II-XII grossly intact. Motor strength 5/5 in all extremities. Sensory grossly intact. Cerebellar exam normal. Normal gait. Psych: Awake, alert, with orientation to person, place and time. Behavior, mood, and affect are within normal limits. 19:04 Abdomen/GI: Inspection: abdomen appears normal, Bowel sounds: normal, Palpation: abdomen is soft and non-tender, Rectal exam: Indicators: 19:04 : CVA tenderness, Pelvic Exam: the exam is deferred, Gravid exam: Bladder: No external bleeding noted. . Vital Signs: 17:32 BP 149 / 97; Pulse 75; Resp 16; Temp 98; Pulse Ox 100% ; bp 18:30 BP 133 / 81; Pulse 76; Resp 18; Pulse Ox 99% on R/A; ld1 MDM: 17:26 Patient medically screened. jl9 19:07 Data reviewed: vital signs, nurses notes. Counseling: I had a detailed discussion with jlRowan the patient and/or guardian regarding: the historical points, exam findings, and any diagnostic results supporting the discharge/admit diagnosis, lab results, radiology results, the need for outpatient follow up, an OB/Gyne specialist. 05/03 17:31 Order name: CBC with Diff; Complete Time: 18:06 jl9 05/03 17:31 Order name: BMP; Complete Time: 18:37 9 05/03 17:31 Order name: Lipase; Complete Time: 18:37 9 05/03 17:31 Order name: Beta hcg; Complete Time: 18:37 9 05/03 17:31 Order name: Abo/rh Typing; Complete Time: 18:37 9 05/03 17:31 Order name: Urine Dipstick-Ancillary (obtain specimen); Complete Time: 17:48 jl9 05/03 17:31 Order name: Transvaginal OB US; Complete Time: 19:00 9 05/03 17:47 Order name: Urine Dipstick-Ancillary; Complete Time: 18:06 EDMS 05/03 17:52 Order name: Urine --Ancillary; Complete Time: 18:48 EDMS Administered Medications: No medications were administered Disposition: 19:23 Co-signature as Attending Physician, Sumanth RODRIGUEZ was immediately available on-site ms3 in the Emergency Department for consultation in the care of the patient.. Disposition Summary: 05/03/22 19:08 Discharge Ordered Location: Home jl9 Condition: Stable jl9 Diagnosis - Hemorrhage in early , unspecified jl9 Followup: jl9 - With: Private Physician - When: 1 - 2 days - Reason: Recheck today's complaints, Continuance of care, Re-evaluation by your physician Discharge Instructions: - Discharge Summary Sheet jl9 - Vaginal Bleeding During , First Trimester jl9 - Subchorionic Hematoma jl9 - Activity Restriction During jl9 Forms: - Medication Reconciliation Form jl9 - Thank You Letter jl9 - Antibiotic Education jl9 - Prescription Opioid Use jl9 Signatures: Dispatcher [employer] EDHugo Dobbins, RN RN bp Sumanth East DO DO ms3 Enrique Paz jl9 Corrections: (The following items were deleted from the chart) 17:35 17:34 PMHx: Asthma; bp bp 19:07 17:30 This 27 yrs old Black Female presents to ER via EMS with complaints of Abdominal jl9 Pain. Patient reports being 2 months . . jl9
--- NOTE | 2022-05-03 19:09 | ER ---
Nurse's Notes [facility] Name: Radha Smith Age: 27 yrs Sex: Female : 1995 Arrival Date: 05/03/2022 Time: 17:26 Bed 6 Private MD: Diagnosis: Hemorrhage in early , unspecified Presentation: 05/03 17:32 Chief complaint: EMS states: BLQ PAIN WITH VAGINAL SPOTTING, 2 MONTH . bp Coronavirus screen: At this time, the client does not indicate any symptoms associated with coronavirus-19. Ebola Screen: No symptoms or risks identified at this time. Initial Sepsis Screen: Does the patient meet any 2 criteria? No. Patient's initial sepsis screen is negative. Does the patient have a suspected source of infection? No. Patient's initial sepsis screen is negative. Risk Assessment: Do you want to hurt yourself or someone else? Patient reports no desire to harm self or others. Onset of symptoms was May 03, 2022 at 12:00. Care prior to arrival: IV initiated. 20 GA, in the left antecubital area. 17:32 Method Of Arrival: EMS: [facility] bp 17:32 Acuity: FARIHA 3 bp Triage Assessment: 17:34 General: Appears in no apparent distress. comfortable, Behavior is cooperative, bp appropriate for age, anxious. Pain: Complains of pain in right lower quadrant and left lower quadrant. EENT: No deficits noted. Neuro: No deficits noted. Cardiovascular: No deficits noted. Respiratory: No deficits noted. GI: Reports lower abdominal pain. : Reports vaginal bleeding that is. Derm: No deficits noted. Musculoskeletal: No deficits noted. 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 - Social history:: Smoking status: unknown. Screenin:36 Abuse screen: Denies threats or abuse. Denies injuries from another. Nutritional bp screening: No deficits noted. Tuberculosis screening: No symptoms or risk factors identified. Fall Risk None identified. Assessment: 17:36 General: SEE TRIAGE NOTE. bp Vital Signs: 17:32 BP 149 / 97; Pulse 75; Resp 16; Temp 98; Pulse Ox 100% ; bp 18:30 BP 133 / 81; Pulse 76; Resp 18; Pulse Ox 99% on R/A; ld1 ED Course: 17:26 Patient arrived in ED. ld1 17:26 Enrique Paz is PHCP. jl9 17:26 Sumanth East DO is Attending Physician. jl9 17:32 Meri Hansen, RN is Primary Nurse. ld1 17:33 Triage completed. bp 17:34 Arm band placed on. bp 17:36 Patient has correct armband on for positive identification. Bed in low position. Call bp light in reach. Side rails up X2. PT IN CUSTODY. 17:36 Maintain EMS IV. Dressing intact. Good blood return noted. Site clean \T\ dry. Gauge \T\ bp site: 20 GAUGE LEFT AC. 18:36 Transvaginal OB US In Process Unspecified. EDMS 19:13 No provider procedures requiring assistance completed. IV discontinued, intact, as6 bleeding controlled, No redness/swelling at site. Pressure dressing applied. Administered Medications: No medications were administered Medication: 17:36 VIS not applicable for this client. bp Outcome: 19:08 Discharge ordered by MD. acuña 19:14 Discharged to Law Enforcement as6 19:14 Condition: stable 19:14 Discharge instructions given to patient, Instructed on discharge instructions, follow up and referral plans. Demonstrated understanding of instructions, follow-up care. 19:14 Patient left the ED. as6 Signatures: Dispatcher [employer] EDMS Hugo Montano RN RN bp Meri Hansen, RN RN ld1 Alejandro Duffy RN RN as6 PazEnrique jl9 Corrections: (The following items were deleted from the chart) 17:35 17:34 PMHx: Asthma; bp bp
[2022-05-03 19:57] VITALS: TEMP 98
[2022-05-03 19:59] VITALS: BP 133/81; O2SAT 99
== END 2022-05-03 19:14 | disposition home or self-care (01) ==
LOC: ER 17:24
DX: O20.9 Hemorrhage in early pregnancy, unspecified (principal)
CPT/HCPCS: 36415; 76817; 80048; 81003; 81025; 83690; 84702; 85025; 86900; 86901